=== PATIENT | male | born 1965 | race Caucasian/White ===

== ENCOUNTER 2018-06-19 18:49 | Emergency (ER) | payer OTHER ==
[2018-06-19 19:00] VITALS: TEMP 98.4; BMI 21.9
[2018-06-19] MEDS ORDERED: FOLIC ACID INJECTION - 1 MG, THIAMINE HCL 100 MG, MULTIVIT INJECTION ADULT 10 ML in SOD... IVPB ONE (21:13)
[2018-06-19] MEDS ORDERED: chlordiazePOXIDE HCL 25 MG CAPSULE PO ONE (21:13)
[2018-06-19] MEDS ORDERED: LORazepam 2 MG/ML SDV VIAL ONE (21:26)
[2018-06-19] MEDS ORDERED: chlordiazePOXIDE 5 MG CAPSULE ONE (21:26)
[2018-06-19 21:29] LABS: BASO % 0.8 % (0-2.0); EOS % 3.6 % (0-4.5); HEMATOCRIT 43.9 % (35.4-49); HEMOGLOBIN 15.3 GM/dL (11.7-16.9); LYMPH % 47.4 % (8-40); MCH 32.6 pg (25.7-33.7); MCHC 34.9 g/dl (32.0-35.9); MEAN CELL VOLUME 93.3 fl (80-96); MEAN PLT VOLUME 7.1 fl (7.5-11.1); MONO % 7.2 % (3.8-10.2); PLATELET COUNT 215 K/MM3 (134-434); RBC 4.71 M/mm3 (4.00-5.60); WHITE BLOOD COUNT 6.8 K/mm3 (4.0-10.0)
--- NOTE | 2018-06-19 21:31 | PDOC ---
History of Present Illness - General Chief Complaint: Alcohol intoxication Stated Complaint: ALCOHOL INTOXICATION Time Seen by Provider: 06/19/18 20:31 History Source: Patient Exam Limitations: No Limitations - History of Present Illness Initial Comments: 06/19/18 21:26 HISTORY OF PRESENT ILLNESS: This 52-year-old male past medical history is polysubstance abuse (1 pint of alcohol daily as well as Klonopin which he purchases on the street) who presents emergency department for evaluation of alcohol intoxication. Patient presented to to [facility] for detox but was told his blood alcohol level was too high at that time. Patient reports his last alcohol intake was approximately 4 hours ago. Patient reports he hasn't had any Klonopin in the past 7-10 days. Patient complains of feeling "shaky." He denies any nausea, vomiting, tactile hallucinations, visual disturbances or pain. No recent travel or sick contacts. PAST MEDICAL HISTORY: see HPI SURGICAL HISTORY: Denies ALLERGIES: No known drug allergies REVIEW OF SYSTEMS General/Constitutional: Denies fever or chills. Denies weakness, weight change. HEENT: Denies change in vision. Denies ear pain or discharge. Denies sore throat. Cardiovascular: Denies chest pain or shortness of breath. Respiratory: Denies cough, wheezing, or hemoptysis. Gastrointestinal: Denies nausea, vomiting, diarrhea or constipation. Denies rectal bleeding. Genitourinary: Denies dysuria, frequency, or change in urination. Musculoskeletal: Denies joint or muscle swelling or pain. Denies neck or back pain. Skin and breasts: Denies rash or easy bruising. Neurologic: Denies headache, vertigo, loss of consciousness, or loss of sensation. Endorses tremors. Psychiatric: Denies depression or anxiety. Endocrine: Denies increased thirst. Denies abnormal weight change. Hematologic/Lymphatic: Denies anemia, easy bleeding, or history of blood clots. Allergic/Immunologic: Denies hives or skin allergy. Denies latex allergy. PHYSICAL EXAM General Appearance: Well-appearing, appropriately dressed. No apparent distress , no intoxication. HEENT: EOMI, PERRLA, normal ENT inspection, normal voice, TMs normal, pharynx normal. No conjunctival pallor. No photophobia, scleral icterus. Neck: Supple. Trachea midline. No tenderness, rigidity, carotid bruit, stridor , lymphadenopathy, or thyromegaly. Respiratory/Chest: Lungs CTAB. No shortness of breath, chest tenderness, respiratory distress, accessory muscle use. No crackles, rales, rhonchi, stridor , wheezing, dullness Cardiovascular: RRR. S1, S2. No JVD, murmur, bradycardia, tachycardia. Vascular Pulses: Dorsalis-Pedis (R): 2+, Dorsalis-Pedis (L): 2+ Gastrointestinal/Abdominal: Normal bowel sounds. Abdomen soft, non-distended. No tenderness or rebound tenderness. No organomegaly, pulsatile mass, guarding, hernia, hepatomegaly, splenomegaly. Lymphatic: No adenopathy, tenderness. Musculoskeletal/Extremities: Normal inspection. FROM of all extremities, normal capillary refill. Pelvis Stable. No CVA tenderness. No tenderness to extremities, pedal edema, swelling, erythema or deformity. Integumentary: Appropriate color, dry, warm. No cyanosis, erythema, jaundice or rash Neurologic: quality control analyst II-XII intact. Fully oriented, alert. Appropriate mood/affect. Motor strength 5/5. No appreciable EOM palsy, facial droop or sensory deficit. Tongue fasciculations present. Tremors present bilateral hands with elbows flexed. CIWA-Ar- 7 Past History - Past Medical History Allergies/Adverse Reactions: Allergies Allergy/AdvReac Type Severity Reaction Status Date / Time No Known Allergies Allergy Verified 06/19/18 16:46 Home Medications: Ambulatory Orders Bupropion HCl [Wellbutrin Xl -] 150 mg PO DAILY #30 tab.sr.24h 04/13/15 Gabapentin [Neurontin -] 100 mg PO Q8H 06/19/18 Lurasidone HCl [Latuda -] 20 mg PO DAILY 06/19/18 Trazodone HCl 150 mg PO HS 06/19/18 Anemia: No Asthma: No Cancer: No Cardiac Disorders: No CVA: No COPD: No CHF: No Dementia: No Diabetes: No GI Disorders: No Disorders: No HTN: No Hypercholesterolemia: No Kidney Stones: No Liver Disease: No Seizures: Yes Thyroid Disease: No Other medical history: alcohol abuse - Surgical History Abdominal Surgery: No Appendectomy: No Cardiac Surgery: No Cholecystectomy: No Lung Surgery: No Neurologic Surgery: No Orthopedic Surgery: No - Reproductive History Testicular Surgery: No - Immunization History Immunization Up to Date: No - Suicide/Smoking/Psychosocial Hx Smoking History: Current every day smoker Have you smoked in the past 12 months: No Number of Cigarettes Smoked Daily: 10 Cigars Per Day: 10 Information on smoking cessation initiated: No 'Breaking Loose' booklet given: 04/12/15 Hx Alcohol Use: Yes Drug/Substance Use Hx: No Substance Use Type: Alcohol, Cocaine, Heroin, Marijuana, Tranquilizers Hx Substance Use Treatment: Yes *Physical Exam - Vital Signs Last Vital Signs Temp Pulse Resp BP Pulse Ox 98.4 F 94 H 16 135/87 98 06/19/18 18:58 06/19/18 18:58 06/19/18 18:58 06/19/18 18:58 06/19/18 18:58 Moderate Sedation - Procedure Monitoring Vital Signs: Procedure Monitoring Vital Signs Temperature 98.4 F 06/19/18 18:58 Pulse Rate 94 H 06/19/18 18:58 Respiratory Rate 16 06/19/18 18:58 Blood Pressure 135/87 06/19/18 18:58 O2 Sat by Pulse Oximetry (%) 98 06/19/18 18:58 ED Treatment Course - LABORATORY CBC & Chemistry Diagram: 06/19/18 21:20 06/19/18 21:20 Medical Decision Making - Medical Decision Making 06/19/18 21:30 A/P: 52-year-old male here for evaluation of alcohol withdrawal CIWA-Ar score- 7 No fasciculations present Tremors present with arms flexed Laboratory testing Banana bag Ativan 2 mg IV now Librium 50 mg orally now Reassess 06/20/18 06:27 Patient is ambulatory with steady gait and able to make needs known. I will discharge the patient with recommendation to go to detox. *DC/Admit/Observation/Transfer Diagnosis at time of Disposition: Alcohol dependence with uncomplicated withdrawal - Discharge Dispostion Disposition: HOME Condition at time of disposition: Stable Decision to Admit order: No - Referrals - Patient Instructions Printed Discharge Instructions: DI for Alcohol Abuse Additional Instructions: Avoid alcohol. Drink plenty of fluids. Eat a well-balanced diet. It is recommended you go to to [facility] for detox for continued evaluation. Return to emergency department for any concerns. - Post Discharge Activity
[2018-06-19 22:04] LABS: ALBUMIN 3.9 g/dl (3.4-5.0); ALK PHOS 107 U/L (45-117); ANION GAP 10 MMOL/L (8-16); BILIRUBIN,TOTAL 0.4 mg/dL (0.2-1); BLOOD UREA NITROGEN 7 mg/dL (7-18); CALCIUM 8.4 mg/dL (8.5-10.1); CHLORIDE 103 mmol/L (98-107); CO2 27 mmol/L (21-32); CREATININE 0.9 mg/dL (0.55-1.3); GLUCOSE,RANDOM 87 mg/dL (74-106); POTASSIUM 4.6 mmol/L (3.5-5.1); SGOT/AST 40 U/L (15-37); SGPT/ALT 23 U/L (13-61); SODIUM 140 mmol/L (136-145)
[2018-06-20] MEDS ORDERED: LORazepam 2 MG/ML SDV VIAL ONE (01:54)
[2018-06-20] MEDS ORDERED: chlordiazePOXIDE HCL 25 MG CAPSULE PO ONE (05:07)
[2018-06-20] MEDS ORDERED: chlordiazePOXIDE HCL 25 MG CAPSULE ONE (05:18)
[2018-06-20 06:46] VITALS: BP 132/78; PULSE 86
== END 2018-06-20 07:20 | disposition home or self-care (01) ==
LOC: JER 18:49
PROC: 3E033GC Introduction of Other Therapeutic Substance into Peripheral Vein, Percutaneous Approach (ICD-10-PCS; principal; 2018-06-19)
PROC: 3E033NZ Introduction of Analgesics, Hypnotics, Sedatives into Peripheral Vein, Percutaneous Approach (ICD-10-PCS; 2018-06-19)
DX: F10.239 Alcohol dependence with withdrawal, unspecified (principal); F17.210 Nicotine dependence, cigarettes, uncomplicated
CPT/HCPCS: 36415; 80053; 80307; 85025; 99282-25; J7030

== ENCOUNTER 2018-06-20 08:26 | Inpatient (IN) | payer OTHER ==
[2018-06-20 08:41] VITALS: BMI 21.9
--- NOTE | 2018-06-20 09:54 | HP ---
"CIWA Score Nausea/Vomitin-Mild Nausea/No Vomiting Muscle Tremors: 7-Severe,w/o Arm Extended Anxiety: 6 Agitation: 0-Normal Activity Paroxysmal Sweats: No Perspiration Orientation: 0-Oriented Tacttile Disturbances: 0-None Auditory Disturbances: 0-None Visual Disturbances: 0-None Headache: 0-None Present CIWA-Ar Total Score: 14 - Admission Criteria OASAS Guidelines: Admission for Medically Managed Detox: Requires at least one of the followin. CIWA greater than 12 2. Seizures within the past 24 hours 3. Delirium tremens within the past 24 hours 4. Hallucinations within the past 24 hours 5. Acute intervention needed for co occurring medical disorder 6. Acute intervention needed for co occurring psychiatric disorder 7. Severe withdrawal that cannot be handled at a lower level of care (continued vomiting, continued diarrhea, abnormal vital signs) requiring intravenous medication and/or fluids 8. Patient presents the following: CIWA greater than 12, Seizures, delirium tremens or hallucinations in the past 12 hours Admission Criteria Met: Admission criteria met Admission ROS [facility] Allergies/Adverse Reactions: Allergies Allergy/AdvReac Type Severity Reaction Status Date / Time No Known Allergies Allergy Verified 06/20/18 10:11 History of Present Illness: patient here requesting detox from etoh use , reports 1 pint and 7-8 beers/day x 4-5 weeks , prior sobriety x 2 years w/ AA , prior 1/5 /day x 30 years , first age of use [age] , heavily since college , prior detox x 8-9 , rehab 2- 3 . + w/d seizure in the past . benzo : clonazepam illicit use 5 pills 9 days ago , since 5-6 years ago , used to have rx March 2018 heroin : 6 weeks ago , via inhalation , reports intermittent use x 4 years tobacco : 1/2 ppd . This report was requested by: Bernadette Charles | Reference #: [id number] Others' Prescriptions Patient Name: Navdeep Cooper Date: 1965 Address: [address] [place] [address] Sex: Male Rx Written Rx Dispensed Drug Quantity Days Supply Prescriber Name 03/24/2018 03/24/2018 clonazepam 1 mg tablet 90 30 Char Murdock MD 02/12/2018 02/12/2018 clonazepam 1 mg tablet 60 30 Char Murdock MD 02/10/2018 02/10/2018 zolpidem tartrate 10 mg tablet 30 30 Char Murdock MD 07/17/2017 07/20/2017 clonazepam 1 mg tablet 60 30 Mary Joy Patient Name: Navdeep Cooper Date: 1965 Address: [address] [place] [address] Sex: Male Rx Written Rx Dispensed Drug Quantity Days Supply Prescriber Name 02/21/2018 02/21/2018 tramadol hcl 50 mg tablet 30 7 Colette Chin MD Patient Name: Navdeep Cooper Date: 1965 Address: [address] [place] [address] Sex: Male Rx Written Rx Dispensed Drug Quantity Days Supply Prescriber Name 04/29/2017 08/10/2017 zolpidem tartrate 10 mg tablet 30 30 Char Murdock MD PMHX/PSHX : denies PSych :depression , denies SI/ HI SHX : lives alone , on SSI , no children , unemployed - Ebola screening Have you traveled outside of the country in the last 21 days: No Have you had contact with anyone from an Ebola affected area: No Have you been sick,other than usual withdrawal symptoms: No Do you have a fever: No - Review of Systems Constitutional: See HPI EENT: reports: Other (lost glasses , hypermetropia , denies dysphagia) Respiratory: reports: No Symptoms reported Cardiac: reports: No Symptoms Reported GI: reports: Nausea : reports: No Symptoms Reported Musculoskeletal: reports: Muscle Weakness Integumentary: reports: No Symptoms Reported Neuro: reports: See HPI, Seizure Endocrine: reports: No Symptoms Reported Psychiatric: reports: Orientated x3, Anxious Patient History - Patient Medical History Hx Anemia: No Hx Asthma: No Hx Chronic Obstructive Pulmonary Disease (COPD): No Hx Cancer: No Hx Cardiac Disorders: No Hx Congestive Heart Failure: No Hx Hypertension: No Hx Hypercholesterolemia: No Hx Pacemaker: No HX Cerebrovascular Accident: No Hx Seizures: Yes Hx Dementia: No Hx Diabetes: No Hx Gastrointestinal Disorders: No Hx Liver Disease: No Hx Genitourinary Disorders: No Hx Sexually Transmitted Disorders: No Hx Renal Disease (ESRD): No Hx Thyroid Disease: No Hx Human Immunodeficiency Virus (HIV): No Hx Hepatitis C: No Hx Depression: Yes Hx Suicide Attempt: No Hx Schizophrenia: No - Patient Surgical History Past Surgical History: No Hx Neurologic Surgery: No Hx Cataract Extraction: No Hx Cardiac Surgery: No Hx Lung Surgery: No Hx Breast Surgery: No Hx Breast Biopsy: No Hx Abdominal Surgery: No Hx Appendectomy: No Hx Cholecystectomy: No Hx Genitourinary Surgery: No Hx Section: No Hx Orthopedic Surgery: No Anesthesia Reaction: No - PPD History Date: 04/14/15 Results: 0 mm - Smoking Cessation Smoking history: Current every day smoker Have you smoked in the past 12 months: No Aproximately how many cigarettes per day: 10 Cigars Per Day: 10 Hx Chewing Tobacco Use: No Initiated information on smoking cessation: No - Substances Abused Heroin Route: Inhalation Frequency: 1-3 times last 30 days Amount used: 2 bags Age of first use: 48 Date of Last Use: 06/12/18 Alcohol-beer/vodka Route: Oral Frequency: Daily Amount used: 1-6 pk./1 pt. Age of first use: 14 Date of Last Use: 06/19/18 Klonopin Route: Oral Frequency: 1-3 times last 30 days Amount used: 2-3 mg., Age of first use: 46 Date of Last Use: 06/17/18 Family Disease History - Family Disease History Family Disease History: Other: Father (d.54 lung CA , etoh abuse), Mother ( DEPRESSION , d. 67 lupus ), Brother (2 , A & W ) Admission Physical Exam S - Vital Signs Vital Signs: Vital Signs - 24 hr 06/20/18 08:39 Temperature 98.6 F Pulse Rate 88 Respiratory 18 Rate Blood Pressure 140/80 - Physical General Appearance: Yes: Moderate Distress, Thin, Tremorous, Anxious HEENTM: Yes: EOMI, Hearing grossly Normal, Normocephalic, Normal Voice Respiratory: Yes: Chest Non-Tender, Lungs Clear, Normal Breath Sounds Breast: Yes: Breast Exam Deferred Cardiology: Yes: Regular Rhythm, Regular Rate, S1, S2, Tachycardia Abdominal: Yes: Non Tender, Soft Genitourinary: Yes: Within Normal Limits Musculoskeletal: Yes: Other (slight staggering) Extremities: Yes: Normal Capillary Refill, Normal Range of Motion, Tremors Neurological: Yes: Fully Oriented, Alert, Motor Strength 5/5 Integumentary: Yes: Normal Color, Dry, Warm - Diagnostic (1) Alcohol dependence with uncomplicated withdrawal Current Visit: No Status: Acute (2) Benzodiazepine dependence Current Visit: No Status: Acute (3) Nicotine dependence Current Visit: No Status: Chronic Qualifiers: Nicotine product type: cigarettes Substance use status: uncomplicated Qualified Code(s): F17.210 - Nicotine dependence, cigarettes, uncomplicated BHS Breath Alcohol Content Breath Alcohol Content: 0 Urine Drug Screen - Results Drug Screen Negative: No Urine Drug Screen Results: BZO-Benzodiazepines"
[2018-06-20] MEDS ORDERED: P-EPHED 60MG/TRIPROLIDI 2.5MG TABLET PO PRN (10:01)
[2018-06-20] MEDS ORDERED: guaiFENesin/D-METHORPHAN HB 10 ML UNIT-DOSE CUPS PO PRN (10:01)
[2018-06-20] MEDS ORDERED: ACETAMINOPHEN 325 MG TABLET (FP) PO PRN (10:01)
[2018-06-20] MEDS ORDERED: MENTHOL/PHENOL 1 EACH UD MM PRN (10:01)
[2018-06-20] MEDS ORDERED: NICOTINE POLACRILEX 2 MG GUM BUC PRN (10:01)
[2018-06-20] MEDS ORDERED: MAG HYDROX/AL HYDROX/SIMETH 30 ML UNIT-DOSE CUP PO PRN (10:01)
[2018-06-20] MEDS ORDERED: IBUPROFEN 400 MG TABLET (FP) PO PRN (10:01)
--- NOTE | 2018-06-20 11:58 | CONSULT ---
[facility] Psychiatric Consult - Data Date of interview: 06/20/18 Admission source: [facility] Identifying data: patient here requesting detox from etoh use , reports 1 pint and 7-8 beers/day x 4-5 weeks , prior sobriety x 2 years w/ AA , prior 1/5 /day x 30 years , first age of use [age] , heavily since college , prior detox x 8-9 , rehab 2-3 . + w/d seizure in the past . benzo : clonazepam illicit use 5 pills 9 days ago , since 5-6 years ago , used to have rx March 2018. heroin : 6 weeks ago , via inhalation , reports intermittent use x 4 years. tobacco : 1/2 ppd . Substance Abuse History: Patient reports long history of Alcohol, Benzodiazepins and Nicotine abuse,dependence. Patient reports multiple history of detoxes and rehabs, reports the most provocative drug is Alcohol, reports w/ d seizures history once happened due to Alcohol withdrawal in the past. Medical History: Seizure history Psychiatric History: Patient reports history of anxiety amd depression, reports his anxiety and depression is drugs related, denies suicidal, homicidal history , reports psychiatric hospitalization on 2015 at [facility]. Patient states taking prior to madmission: Wellbutrin X150MG P[OQD. Gabapentin 300MG PO TID. Latuda 20mg poqd. Trazodone 150mg po qhs Physical/Sexual Abuse/Trauma History: Denies Additional Comment: Wellbutrin X150MG P[OQD. Gabapentin 300MG PO TID. Latuda 20mg poqd. Trazodone 150mg po qhs Mental Status Exam - Mental Status Exam Alert and Oriented to: Person Cognitive Function: Fair Patient Appearance: Unkempt Mood: Apprehensive Affect: Mood Congruent Patient Behavior: Cooperative Voice Loudness: Normal Thought Process: Goal Oriented Thought Disorder: Being Controlled Hallucinations: Denies Suicidal Ideation: Denies Homicidal Ideation: Denies Insight/Judgement: Fair Sleep: Difficulty falling asleep Appetite: Weight loss Additional Comments: Wellbutrin X150MG P[OQD. Gabapentin 300MG PO TID. Latuda 20mg poqd. Trazodone 150mg po qhs Psychiatric Findings - Problem List (Carmine 1, 2,3) (1) Major Depressive Disorder,Recurrent,Severe w/ P.F Current Visit: No Status: Active (2) Posttraumatic stress disorder Current Visit: No Status: Active (3) Alcohol dependence Current Visit: No Status: Acute (4) Alcohol dependence with uncomplicated withdrawal Current Visit: No Status: Acute (5) Benzodiazepine dependence Current Visit: No Status: Acute (6) Heroin dependence Current Visit: No Status: Acute (7) Opioid dependence with withdrawal Current Visit: No Status: Acute (8) Cannabis dependence Current Visit: No Status: Chronic (9) Cocaine dependence Current Visit: No Status: Chronic Qualifiers: Substance use status: uncomplicated Qualified Code(s): F14.20 - Cocaine dependence, uncomplicated (10) Nicotine dependence Current Visit: No Status: Chronic Qualifiers: Nicotine product type: cigarettes Substance use status: uncomplicated Qualified Code(s): F17.210 - Nicotine dependence, cigarettes, uncomplicated (11) Substance induced mood disorder Current Visit: No Status: Chronic - Initial Treatment Plan Initial Treatment Plan: Wellbutrin X150MG P[OQD. Gabapentin 300MG PO TID. Latuda 20mg poqd. Trazodone 150mg po qhs
[2018-06-20] MEDS: chlordiazePOXIDE HCL 25 MG CAPSULE PO PRN (12:19)
--- NOTE | 2018-06-20 12:25 | HP ---
[facility] Rehab Assess/Revision - Vital signs Vital Signs: Vital Signs Period Temp Pulse Resp BP Sys/Mariscal Pulse Ox Last 24 Hr 98.6 F 88 18 140/80
[2018-06-20] MEDS: GABAPENTIN 100 MG CAPSULE (FP) PO SCH ×2 (14:17→22:21)
[2018-06-20] MEDS: LURASIDONE HCL 20 MG TABLET PO SCH (14:17)
[2018-06-20] MEDS: chlordiazePOXIDE HCL 25 MG CAPSULE PO SCH ×2 (17:25→22:21)
[2018-06-20] MEDS ORDERED: MELATONIN 5 MG TABLETS PO PRN (22:00)
[2018-06-20] MEDS: traZODone HCL 50 MG TABLET (FP) PO SCH (22:21)
[2018-06-20] MEDS: THIAMINE HCL 100 MG TABLET (FP) PO SCH (22:21)
[2018-06-21] MEDS: GABAPENTIN 100 MG CAPSULE (FP) PO SCH ×3 (06:05→22:06)
[2018-06-21] MEDS: chlordiazePOXIDE HCL 25 MG CAPSULE PO SCH ×2 (06:05→10:28)
[2018-06-21] MEDS: hydrOXYzine PAMOATE 50 MG CAPSULE (FP) PO PRN ×2 (10:28→22:06)
[2018-06-21] MEDS: PRENATAL VITAMINS W/ FOLIC ACID TABLET (FP) PO SCH (10:28)
[2018-06-21] MEDS: LURASIDONE HCL 20 MG TABLET PO SCH (10:28)
--- NOTE | 2018-06-21 10:51 | PN ---
S CIWA - CIWA Score Nausea/Vomitin-No Nausea/No Vomiting Muscle Tremors: 3 Anxiety: 3 Agitation: 3 Paroxysmal Sweats: 3 Orientation: 0-Oriented Tacttile Disturbances: 0-None Auditory Disturbances: 0-None Visual Disturbances: 0-None Headache: 0-None Present CIWA-Ar Total Score: 12 BHS Progress Note (SOAP) Subjective: sweats shakes interrupted sleep body aches Objective: 06/21/18 10:50 Vital Signs Temperature 98.1 F 06/21/18 09:50 Pulse Rate 91 H 06/21/18 09:50 Respiratory Rate 18 06/21/18 09:50 Blood Pressure 101/55 L 06/21/18 09:50 O2 Sat by Pulse Oximetry (%) labs were drawn at [facility] 06/19/17...labs WNL. Assessment: 06/21/18 10:52 withdrawal sx Plan: continue detox increase fluids
[2018-06-21] MEDS ORDERED: FLU VACCINE QUAD 60 MCG/0.5 ML (MDV 18-19) IM ONE (12:00)
[2018-06-21] MEDS: chlordiazePOXIDE HCL 25 MG CAPSULE PO PRN (14:11)
[2018-06-21] MEDS: chlordiazePOXIDE HCL 10 MG CAPSULE PO SCH ×2 (17:51→22:07)
[2018-06-21] MEDS: THIAMINE HCL 100 MG TABLET (FP) PO SCH (22:05)
[2018-06-21] MEDS: traZODone HCL 50 MG TABLET (FP) PO SCH (22:06)
[2018-06-22] MEDS: chlordiazePOXIDE HCL 10 MG CAPSULE PO SCH ×2 (05:28→10:12)
[2018-06-22] MEDS: GABAPENTIN 100 MG CAPSULE (FP) PO SCH ×3 (05:28→22:19)
[2018-06-22] MEDS: PRENATAL VITAMINS W/ FOLIC ACID TABLET (FP) PO SCH (10:12)
[2018-06-22] MEDS: LURASIDONE HCL 20 MG TABLET PO SCH (10:13)
--- NOTE | 2018-06-22 10:14 | PN ---
BHS CIWA - CIWA Score Nausea/Vomitin Muscle Tremors: 2 Anxiety: 2 Agitation: 2 Paroxysmal Sweats: 2 Orientation: 0-Oriented Tacttile Disturbances: 2-Mild Itch/Numbness/Burn Auditory Disturbances: 0-None Visual Disturbances: 0-None Headache: 1-Very Mild CIWA-Ar Total Score: 14 BHS Progress Note (SOAP) Subjective: Interrupted sleep, shakes, sweats and nausea Objective: 06/22/18 10:13 Vital Signs 06/22/18 06/22/18 06/22/18 03:30 08:13 09:39 Temperature 97.7 F 97.9 F Pulse Rate 71 85 Respiratory 18 18 18 Rate Blood Pressure 114/67 119/96 Laboratory Last Values POC Glucometer 114 UNITS (80-120) 06/21/18 12:01 RPR Titer Nonreactive (NONREACTIVE) 06/21/18 06:00 Assessment: 06/22/18 10:13 Withdrawal sx Plan: Continue detox
[2018-06-22] MEDS: chlordiazePOXIDE HCL 25 MG CAPSULE PO PRN (14:27)
[2018-06-22] MEDS: MAGNESIUM HYDROX 2400MG/30ML ORAL SUSPENSION 30 ML CUP PO PRN (16:39)
[2018-06-22] MEDS: chlordiazePOXIDE HCL 25 MG CAPSULE PO SCH ×2 (16:39→22:18)
[2018-06-22] MEDS: traZODone HCL 50 MG TABLET (FP) PO SCH (22:18)
[2018-06-22] MEDS: THIAMINE HCL 100 MG TABLET (FP) PO SCH (22:18)
[2018-06-23] MEDS: chlordiazePOXIDE HCL 25 MG CAPSULE PO SCH ×2 (06:13→10:21)
[2018-06-23] MEDS: GABAPENTIN 100 MG CAPSULE (FP) PO SCH ×3 (06:13→22:14)
[2018-06-23] MEDS: MAGNESIUM CITRATE 300 ML BOTTLE PO PRN (08:41)
--- NOTE | 2018-06-23 09:48 | PN ---
BHS Progress Note (SOAP) Subjective: feeling better constipated x 3 days regular BM as daily no vomiting denies nausea denies abdominal pain Objective: 06/23/18 15:40 Vital Signs Temperature 97.7 F 06/23/18 14:13 Pulse Rate 79 06/23/18 14:13 Respiratory Rate 18 06/23/18 14:13 Blood Pressure 108/64 06/23/18 14:13 O2 Sat by Pulse Oximetry (%) Laboratory Last Values POC Glucometer 114 UNITS (80-120) 06/21/18 12:01 RPR Titer Nonreactive (NONREACTIVE) 06/21/18 06:00 06/23/18 15:41 see ER lab result Assessment: 06/23/18 15:39 withdrawal sx constipation Plan: continue detox fleet enema
[2018-06-23] MEDS: LURASIDONE HCL 20 MG TABLET PO SCH (10:21)
[2018-06-23] MEDS: PRENATAL VITAMINS W/ FOLIC ACID TABLET (FP) PO SCH (10:21)
[2018-06-23] MEDS ORDERED: SODIUM PHOSPHATE/NA BIPHOS 133 ML ENEMA PR ONE ×2 (13:59→18:45)
[2018-06-23] MEDS: MAGNESIUM HYDROX 2400MG/30ML ORAL SUSPENSION 30 ML CUP PO PRN (15:17)
[2018-06-23] MEDS: chlordiazePOXIDE 5 MG CAPSULE PO SCH ×2 (17:29→22:14)
[2018-06-23] MEDS: traZODone HCL 50 MG TABLET (FP) PO SCH (22:13)
[2018-06-23] MEDS: THIAMINE HCL 100 MG TABLET (FP) PO SCH (22:13)
[2018-06-24] MEDS: chlordiazePOXIDE 5 MG CAPSULE PO SCH ×2 (06:02→10:31)
[2018-06-24] MEDS: GABAPENTIN 100 MG CAPSULE (FP) PO SCH ×3 (06:02→22:09)
[2018-06-24] MEDS: LURASIDONE HCL 20 MG TABLET PO SCH (10:30)
[2018-06-24] MEDS: PRENATAL VITAMINS W/ FOLIC ACID TABLET (FP) PO SCH (10:31)
[2018-06-24] MEDS: MAGNESIUM HYDROX 2400MG/30ML ORAL SUSPENSION 30 ML CUP PO PRN (10:32)
--- NOTE | 2018-06-24 14:35 | PN ---
BHS Progress Note (SOAP) Subjective: Tremors, Nausea, Constipation. Objective: PATIENT A & O X 3, OBSERVED AMBULATING ON UNIT. IN NO ACUTE DISTRESS. 06/24/18 14:33 Vital Signs Temperature 98.4 F 06/24/18 13:22 Pulse Rate 85 06/24/18 13:22 Respiratory Rate 18 06/24/18 13:22 Blood Pressure 121/70 06/24/18 13:22 O2 Sat by Pulse Oximetry (%) Laboratory Tests 06/21/18 06/21/18 06:00 12:01 POC Glucometer 114 RPR Titer Nonreactive LABS NOTED. Assessment: 06/24/18 14:34 WITHDRAWAL SYMPTOMS. Plan: CONTINUE DETOX. INCREASE DAILY PO FLUID INTAKE. PATIENT SCHEDULED FOR D/C TOMORROW.
[2018-06-24] MEDS: MAGNESIUM CITRATE 300 ML BOTTLE PO PRN (15:14)
[2018-06-24] MEDS: chlordiazePOXIDE HCL 10 MG CAPSULE PO SCH ×2 (17:08→22:09)
[2018-06-24] MEDS: hydrOXYzine PAMOATE 50 MG CAPSULE (FP) PO PRN (22:09)
[2018-06-24] MEDS: THIAMINE HCL 100 MG TABLET (FP) PO SCH (22:09)
[2018-06-24] MEDS: traZODone HCL 50 MG TABLET (FP) PO SCH (22:09)
[2018-06-25] MEDS: GABAPENTIN 100 MG CAPSULE (FP) PO SCH (05:11)
[2018-06-25] MEDS: chlordiazePOXIDE HCL 10 MG CAPSULE PO SCH (05:11)
[2018-06-25] MEDS: MAGNESIUM HYDROX 2400MG/30ML ORAL SUSPENSION 30 ML CUP PO PRN (05:13)
[2018-06-25 09:42] VITALS: BP 114/73; PULSE 83; TEMP 98.1
--- NOTE | 2018-06-25 16:41 | DS ---
[facility] Detox Discharge Summary Admission Date: 06/20/18 Discharge Date: 06/25/18 - History Present History: Alcohol Dependence, Cannabis Dependence, Cocaine Dependence, Opioid Dependence, Sedative Dependence Additional Comments: PATIENT RETURNING TO PREVIOUS OUTPATIENT PROGRAM ([facility], [place], [place] ) FOR AFTERCARE. PATIENT NOTES THAT HE WILL CONSIDER REHAB ADMISSION FOR FUTURE. TRANSPORTATION ARRANGED FOR PATIENT TO GET HOME. PATIENT WAS DISCHARGED FROM DETOX UNIT IN STABLE MEDICAL CONDITION. Pertinent Past History: Nicotine Dependence, History of P.T.S.D., Major Depressive Disorder, History of Seizures. - Physical Exam Results Vital Signs: Vital Signs Temperature 98.1 F 06/25/18 09:41 Pulse Rate 83 06/25/18 09:41 Respiratory Rate 18 06/25/18 09:41 Blood Pressure 114/73 06/25/18 09:41 O2 Sat by Pulse Oximetry (%) Pertinent Admission Physical Exam Findings: WITHDRAWAL SYMPTOMS. Laboratory Tests 06/21/18 06/21/18 06:00 12:01 POC Glucometer 114 RPR Titer Nonreactive ADMISSION LABS NOTED. - Treatment Hospital Course: Detox Protocol Followed, Detoxed Safely, Responded well, Discharged Condition Good Patient has Accepted a Rehab Referral to: PATIENT WILL CONSIDER REHAB ADMISSION FOR FUTURE REFERENCE. - Medication Discharge Medications: Ambulatory Orders Bupropion HCl [Wellbutrin Xl -] 150 mg PO DAILY #30 tab.sr.24h 06/20/18 Gabapentin [Neurontin -] 100 mg PO Q8H #90 capsule 06/20/18 Lurasidone HCl [Latuda -] 20 mg PO DAILY #30 tablet 06/20/18 Trazodone HCl 150 mg PO HS #30 tablet 06/20/18 - Diagnosis (1) Major Depressive Disorder,Recurrent,Severe w/ P.F Status: Active (2) Posttraumatic stress disorder Status: Active (3) Alcohol dependence with uncomplicated withdrawal Status: Acute (4) Benzodiazepine dependence Status: Acute (5) Depressive disorder Status: Acute (6) Heroin dependence Status: Acute (7) Opioid dependence with withdrawal Status: Acute (8) Cannabis dependence Status: Chronic (9) Cocaine dependence Status: Chronic Qualifiers: Substance use status: uncomplicated Qualified Code(s): F14.20 - Cocaine dependence, uncomplicated (10) Nicotine dependence Status: Chronic Qualifiers: Nicotine product type: cigarettes Substance use status: uncomplicated Qualified Code(s): F17.210 - Nicotine dependence, cigarettes, uncomplicated (11) Substance induced mood disorder Status: Chronic - AMA Did Patient Leave Against Medical Advice: No
== END 2018-06-25 09:30 | disposition home or self-care (01) | DRG 897 ==
LOC: YASAS 08:26 → Y6N 11:09
PROVIDERS: ADMIT Neuromusculoskeletal Medicine & OMM; ATTEND Neuromusculoskeletal Medicine & OMM
PROC: HZ2ZZZZ Detoxification Services for Substance Abuse Treatment (ICD-10-PCS; principal; 2018-06-20)
DX: F10.230 Alcohol dependence with withdrawal, uncomplicated (principal); F14.20 Cocaine dependence, uncomplicated; F33.3 Major depressive disorder, recurrent, severe with psychotic symptoms; F13.230 Sedative, hypnotic or anxiolytic dependence with withdrawal, uncomplicated; F12.20 Cannabis dependence, uncomplicated; F17.210 Nicotine dependence, cigarettes, uncomplicated; F43.10 Post-traumatic stress disorder, unspecified; F19.24 Other psychoactive substance dependence with psychoactive substance-induced mood disorder; K59.00 Constipation, unspecified; R00.0 Tachycardia, unspecified; Z86.69 Personal history of other diseases of the nervous system and sense organs
CPT/HCPCS: 36415; 80053; 80307; 82962; 85025; 86593; 90688; 99282-25; G0008; J7030

== ENCOUNTER 2018-07-30 14:20 | Inpatient (IN) | payer OTHER ==
[2018-07-30 17:18] VITALS: BMI 21.4
--- NOTE | 2018-07-30 17:23 | HP ---
CIWA Score - Admission Criteria [facility] Guidelines: Admission for Medically Managed Detox: Requires at least one of the followin. CIWA greater than 12 2. Seizures within the past 24 hours 3. Delirium tremens within the past 24 hours 4. Hallucinations within the past 24 hours 5. Acute intervention needed for co occurring medical disorder 6. Acute intervention needed for co occurring psychiatric disorder 7. Severe withdrawal that cannot be handled at a lower level of care (continued vomiting, continued diarrhea, abnormal vital signs) requiring intravenous medication and/or fluids 8. Admission ROS [facility] Allergies/Adverse Reactions: Allergies Allergy/AdvReac Type Severity Reaction Status Date / Time No Known Allergies Allergy Verified 06/20/18 10:11 History of Present Illness: i-stop : Reference #: [id number] Others' Prescriptions Patient Name: Navdeep Cooper Date: 1965 Address: [address] [place] [address] Sex: Male Rx Written Rx Dispensed Drug Quantity Days Supply Prescriber Name 03/24/2018 03/24/2018 clonazepam 1 mg tablet 90 30 Char Murdock MD 02/12/2018 02/12/2018 clonazepam 1 mg tablet 60 30 Char Murdock MD 02/10/2018 02/10/2018 zolpidem tartrate 10 mg tablet 30 30 Char Murdock MD Patient Name: Navdeep Cooper Date: 1965 Address: [address] [place] [address] Sex: Male Rx Written Rx Dispensed Drug Quantity Days Supply Prescriber Name 02/21/2018 02/21/2018 tramadol hcl 50 mg tablet 30 7 Colette Chin MD Patient Name: Navdeep Cooper Date: 1965 Address: [address] [place] [address] Sex: Male Rx Written Rx Dispensed Drug Quantity Days Supply Prescriber Name 04/29/2017 08/10/2017 zolpidem tartrate 10 mg tablet 30 30 Char Murdock MD pt here requesting detox from klonopin use , reports 4-5 of 1 mg each illicitly purchased from "a friend " , started using xanax , took 30 x 1 mg each in the last week . Latest use this morning . Had w/d seizure 2 years ago . ETOH - occasional 2-3 beers . Currently reports feeling " shaky " , sweating , anxious , feeling of hopelessness . cannabis - occasional use adderall - occasional use , had rx 3 years ago denies other illicits tobacco - occasional use. PMHX : depression meds : Latuda, Gabapentin, Bupropion Denies current SI / HI . Denies past SI / SA. PSHX : denies Exam Limitations: No Limitations - Ebola screening Have you traveled outside of the country in the last 21 days: No Have you had contact with anyone from an Ebola affected area: No Have you been sick,other than usual withdrawal symptoms: No Do you have a fever: No - Review of Systems Constitutional: See HPI EENT: reports: Other (reading glasses) Respiratory: reports: No Symptoms reported Cardiac: reports: No Symptoms Reported GI: reports: No Symptoms Reported : reports: No Symptoms Reported Musculoskeletal: reports: No Symptoms Reported Integumentary: reports: No Symptoms Reported Neuro: reports: Seizure, Unsteady Gait Endocrine: reports: No Symptoms Reported Psychiatric: reports: Orientated x3, Anxious, Depressed Patient History - Patient Medical History Hx Anemia: No Hx Asthma: No Hx Chronic Obstructive Pulmonary Disease (COPD): No Hx Cancer: No Hx Cardiac Disorders: No Hx Congestive Heart Failure: No Hx Hypertension: No Hx Hypercholesterolemia: No Hx Pacemaker: No HX Cerebrovascular Accident: No Hx Seizures: Yes Hx Dementia: No Hx Diabetes: No Hx Gastrointestinal Disorders: No Hx Liver Disease: No Hx Genitourinary Disorders: No Hx Sexually Transmitted Disorders: No Hx Renal Disease (ESRD): No Hx Thyroid Disease: No Hx Human Immunodeficiency Virus (HIV): No Hx Hepatitis C: No Hx Depression: Yes Hx Suicide Attempt: No Hx Schizophrenia: No - Patient Surgical History Past Surgical History: No Hx Neurologic Surgery: No Hx Cataract Extraction: No Hx Cardiac Surgery: No Hx Lung Surgery: No Hx Breast Surgery: No Hx Breast Biopsy: No Hx Abdominal Surgery: No Hx Appendectomy: No Hx Cholecystectomy: No Hx Genitourinary Surgery: No Hx Section: No Hx Orthopedic Surgery: No Anesthesia Reaction: No - PPD History Date: 06/22/18 Results: 0 mm - Smoking Cessation Smoking history: Current every day smoker Have you smoked in the past 12 months: No Aproximately how many cigarettes per day: 10 Cigars Per Day: 10 Hx Chewing Tobacco Use: No Initiated information on smoking cessation: No Family Disease History - Family Disease History Family Disease History: Other: Father (d.54 lung CA , etoh abuse), Mother ( DEPRESSION , d. 67 lupus ), Brother (2 , A & W ) Admission Physical Exam [facility] - Vital Signs Vital Signs: Vital Signs - 24 hr 07/30/18 17:16 Temperature 96.2 F L Pulse Rate 81 Respiratory 20 Rate Blood Pressure 125/81 - Physical General Appearance: Yes: Mild Distress, Thin, Sweating, Anxious HEENTM: Yes: EOMI, Hearing grossly Normal, Normocephalic, Normal Voice Respiratory: Yes: Chest Non-Tender, Lungs Clear, Normal Breath Sounds Neck: Yes: No masses,lesions,Nodules, Trachea in good position Cardiology: Yes: Regular Rhythm, Regular Rate, S1, S2 Abdominal: Yes: Normal Bowel Sounds, Soft Genitourinary: Yes: Within Normal Limits Back: Yes: Normal Inspection Musculoskeletal: Yes: Other (unsteady , staggering gait) Extremities: Yes: Normal Capillary Refill, Normal Range of Motion, Tremors Neurological: Yes: Motor Strength 5/5, Depressed Affect Integumentary: Yes: Normal Color, Dry, Warm - Diagnostic (1) Sedative hypnotic or anxiolytic dependence Current Visit: Yes Status: Acute [facility] Breath Alcohol Content Breath Alcohol Content: 0 Urine Drug Screen - Results Drug Screen Negative: No Urine Drug Screen Results: BZO-Benzodiazepines Inpatient Rehab Admission - Rehab Decision to Admit Inpatient rehab admission?: No
[2018-07-30] MEDS ORDERED: ACETAMINOPHEN 325 MG TABLET (FP) PO PRN (17:52)
[2018-07-30] MEDS ORDERED: MAG HYDROX/AL HYDROX/SIMETH 30 ML UNIT-DOSE CUP PO PRN (17:52)
[2018-07-30] MEDS ORDERED: MENTHOL/PHENOL 1 EACH UD MM PRN (17:52)
[2018-07-30] MEDS ORDERED: IBUPROFEN 400 MG TABLET (FP) PO PRN (17:52)
[2018-07-30] MEDS: MAGNESIUM HYDROX 2400MG/30ML ORAL SUSPENSION 30 ML CUP PO PRN (22:31)
[2018-07-30] MEDS: chlordiazePOXIDE HCL 25 MG CAPSULE PO SCH (22:31)
[2018-07-30] MEDS: THIAMINE HCL 100 MG TABLET (FP) PO SCH (22:31)
[2018-07-31] MEDS: chlordiazePOXIDE HCL 25 MG CAPSULE PO SCH ×4 (05:31→22:10)
[2018-07-31] MEDS: MAGNESIUM CITRATE 300 ML BOTTLE PO PRN (05:34)
--- NOTE | 2018-07-31 07:47 | CONSULT ---
[facility] Psychiatric Consult - Data Date of interview: 07/31/18 Admission source: [facility] Identifying data: This is a 52 years old male, single, childless, living alone, onSSI support, with psychiatric hospitalization history, history of MDD, PTSD, with a history of: Opioids, Cocaine, Cannabis, Alcohol and Nicotine dependence , is here reporting withdrawal symptoms and seeking for detox. Substance Abuse History: Smoking history: Current every day smoker. Have you smoked in the past 12 months: No. Aproximately how many cigarettes per day: 10. Cigars Per Day: 10. Hx Chewing Tobacco Use: No. Initiated information on smoking cessation: No Medical History: Denies significant medical problems. Psychiatric History: Patient reports history of MDD, PTSD, reports most recent psychiatric hospitalization on 2015 at [facility], denies suicidal, homicidal history, reports taking prior to admission: Trazodone 150mg po qhs. Gabapentin 100mg po tid. Wellbutrin XL 150mg poqd Physical/Sexual Abuse/Trauma History: Denies Additional Comment: Trazodone 150mg po qhs. Gabapentin 100mg po tid. Wellbutrin XL 150mg poqd Mental Status Exam - Mental Status Exam Alert and Oriented to: Person Cognitive Function: Fair Patient Appearance: Unkempt Mood: Sad Affect: Flat Patient Behavior: Cooperative Speech Pattern: Appropriate Voice Loudness: Mildly Soft/Quiet Thought Process: Goal Oriented Thought Disorder: Being Controlled Hallucinations: Denies Suicidal Ideation: Denies Homicidal Ideation: Denies Insight/Judgement: Fair Sleep: Difficulty falling asleep Appetite: Fair Muscle strength/Tone: Mild Hypotonicity Gait/Station: Shuffling Additional Comments: Trazodone 150mg po qhs. Gabapentin 100mg po tid. Wellbutrin XL 150mg poqd Psychiatric Findings - Problem List ([place] 1, 2,3) (1) Sedative hypnotic or anxiolytic dependence Current Visit: Yes Status: Acute (2) Major Depressive Disorder,Recurrent,Severe w/ P.F Current Visit: No Status: Active (3) Alcohol dependence Current Visit: No Status: Acute (4) Heroin dependence Current Visit: No Status: Acute (5) Opioid dependence with withdrawal Current Visit: No Status: Acute (6) Cocaine dependence Current Visit: No Status: Chronic Qualifiers: Substance use status: uncomplicated Qualified Code(s): F14.20 - Cocaine dependence, uncomplicated (7) Substance induced mood disorder Current Visit: No Status: Chronic - Initial Treatment Plan Initial Treatment Plan: Trazodone 150mg po qhs. Gabapentin 100mg po tid. Wellbutrin XL 150mg poqd
[2018-07-31] MEDS: chlordiazePOXIDE HCL 25 MG CAPSULE PO PRN ×2 (09:20→14:04)
--- NOTE | 2018-07-31 09:29 | PN ---
S CIWA - CIWA Score Nausea/Vomitin-No Nausea/No Vomiting Muscle Tremors: 4-Moderate,w/Arms Extend Anxiety: 4-Mod. Anxious/Guarded Agitation: 4-Moderately Restless Paroxysmal Sweats: 3 Orientation: 0-Oriented Tacttile Disturbances: 0-None Auditory Disturbances: 0-None Visual Disturbances: 0-None Headache: 0-None Present CIWA-Ar Total Score: 15 [facility] Progress Note (SOAP) Subjective: very anxious sweats shakes interrupted sleep body aches Objective: 07/31/18 09:28 Vital Signs Temperature 97.7 F 07/31/18 07:43 Pulse Rate 70 07/31/18 07:43 Respiratory Rate 18 07/31/18 07:43 Blood Pressure 120/73 07/31/18 07:43 O2 Sat by Pulse Oximetry (%) labs pending aaox3 ambulating no acute distress Assessment: 07/31/18 09:29 withdrawal sx Plan: continue detox increase fluids labs pending
[2018-07-31] MEDS: PRENATAL VITAMINS W/ FOLIC ACID TABLET (FP) PO SCH (10:30)
[2018-07-31 12:46] LABS: ANION GAP 4 MMOL/L (8-16); BLOOD UREA NITROGEN 21 mg/dL (7-18); CHLORIDE 109 mmol/L (98-107); CO2 27 mmol/L (21-32); CREATININE 1.3 mg/dL (0.55-1.3); GLUCOSE,RANDOM 92 mg/dL (74-106); POTASSIUM 4.5 mmol/L (3.5-5.1); SODIUM 140 mmol/L (136-145)
[2018-07-31 12:47] LABS: ALK PHOS 63 U/L (45-117); BILIRUBIN,TOTAL 0.5 mg/dL (0.2-1); HEMATOCRIT 41.6 % (35.4-49); MCH 32.1 pg (25.7-33.7); MCHC 33.7 g/dl (32.0-35.9); MEAN CELL VOLUME 95.2 fl (80-96); MEAN PLT VOLUME 8.6 fl (7.5-11.1); PLATELET COUNT 282 K/MM3 (134-434); RBC 4.36 M/mm3 (4.00-5.60); RDW 15.2 % (11.9-15.9); SGOT/AST 14 U/L (15-37); SGPT/ALT 16 U/L (13-61); TOT PROT 7.4 g/dl (6.4-8.2); WHITE BLOOD COUNT 7.7 K/mm3 (4.0-10.0)
[2018-07-31] MEDS: POLYETHYLENE GLYCOL 3350 119 GM BTL PO SCH ×2 (13:59→22:11)
[2018-07-31] MEDS: GABAPENTIN 100 MG CAPSULE (FP) PO SCH ×2 (14:03→22:10)
[2018-07-31] MEDS: THIAMINE HCL 100 MG TABLET (FP) PO SCH (22:10)
[2018-07-31] MEDS: traZODone HCL 50 MG TABLET (FP) PO SCH (22:10)
[2018-08-01] MEDS: chlordiazePOXIDE HCL 25 MG CAPSULE PO PRN ×2 (03:06→14:30)
[2018-08-01] MEDS: GABAPENTIN 100 MG CAPSULE (FP) PO SCH ×3 (05:50→22:11)
[2018-08-01] MEDS: chlordiazePOXIDE HCL 25 MG CAPSULE PO SCH ×3 (05:51→17:13)
[2018-08-01] MEDS: POLYETHYLENE GLYCOL 3350 119 GM BTL PO SCH ×2 (10:20→22:11)
[2018-08-01] MEDS: PRENATAL VITAMINS W/ FOLIC ACID TABLET (FP) PO SCH (10:21)
[2018-08-01] MEDS: NICOTINE POLACRILEX 4 MG GUM BUC PRN ×2 (11:04→13:25)
--- NOTE | 2018-08-01 11:10 | PN ---
S CIWA - CIWA Score Nausea/Vomitin-No Nausea/No Vomiting Muscle Tremors: 3 Anxiety: 3 Agitation: 3 Paroxysmal Sweats: 3 Orientation: 0-Oriented Tacttile Disturbances: 0-None Auditory Disturbances: 0-None Visual Disturbances: 0-None Headache: 0-None Present CIWA-Ar Total Score: 12 S Progress Note (SOAP) Subjective: sweats interrupted sleep anxiety Objective: 08/01/18 11:10 Vital Signs Temperature 97.9 F 08/01/18 09:42 Pulse Rate 63 08/01/18 09:42 Respiratory Rate 18 08/01/18 09:42 Blood Pressure 115/64 08/01/18 09:42 O2 Sat by Pulse Oximetry (%) Laboratory Tests 07/31/18 07/31/18 07/31/18 07:00 07:00 07:00 WBC 7.7 RBC 4.36 Hgb 14.0 Hct 41.6 MCV 95.2 MCH 32.1 MCHC 33.7 RDW 15.2 Plt Count 282 D MPV 8.6 D Sodium 140 Potassium 4.5 Chloride 109 H Carbon Dioxide 27 Anion Gap 4 L BUN 21 H Creatinine 1.3 Creat Clearance w eGFR 57.53 Random Glucose 92 Calcium 9.0 Total Bilirubin 0.5 AST 14 L ALT 16 Alkaline Phosphatase 63 Total Protein 7.4 Albumin 4.0 RPR Titer Nonreactive aaox3 ambulating no acute distress Assessment: 08/01/18 11:10 withdrawal sx Plan: continue detox increase fluids
[2018-08-01] MEDS: THIAMINE HCL 100 MG TABLET (FP) PO SCH (22:10)
[2018-08-01] MEDS: traZODone HCL 50 MG TABLET (FP) PO SCH (22:10)
[2018-08-01] MEDS: chlordiazePOXIDE 5 MG CAPSULE PO SCH (22:11)
[2018-08-02] MEDS: MELATONIN 5 MG TABLETS PO PRN ×2 (01:23→21:34)
[2018-08-02] MEDS: MAGNESIUM HYDROX 2400MG/30ML ORAL SUSPENSION 30 ML CUP PO PRN (01:23)
[2018-08-02] MEDS: chlordiazePOXIDE 5 MG CAPSULE PO SCH ×2 (05:17→10:32)
[2018-08-02] MEDS: NICOTINE POLACRILEX 4 MG GUM BUC PRN ×2 (05:18→16:55)
[2018-08-02] MEDS: GABAPENTIN 100 MG CAPSULE (FP) PO SCH ×3 (06:57→21:34)
--- NOTE | 2018-08-02 09:54 | PN ---
[facility] Progress Note (SOAP) Subjective: agitation i have toe/feet fungus Objective: 08/02/18 09:49 Vital Signs Temperature 98.2 F 08/02/18 09:29 Pulse Rate 71 08/02/18 09:29 Respiratory Rate 18 08/02/18 09:29 Blood Pressure 114/65 08/02/18 09:29 O2 Sat by Pulse Oximetry (%) aaox3 ambulating no acute distress Assessment: 08/02/18 09:53 mild withdrawals Plan: continue detox increase fluids tinactin cream ordered d/c in am
--- NOTE | 2018-08-02 10:31 | PN ---
S Progress Note Note: pt agreed to go to rehab today and is feeling fine. pt will be d/c to [facility] rehab today.
[2018-08-02] MEDS: PRENATAL VITAMINS W/ FOLIC ACID TABLET (FP) PO SCH (10:32)
[2018-08-02] MEDS: POLYETHYLENE GLYCOL 3350 119 GM BTL PO SCH ×2 (10:33→21:35)
--- NOTE | 2018-08-02 11:27 | DS ---
[facility] Detox Discharge Summary Admission Date: 07/30/18 Discharge Date: 08/02/18 - History Present History: Alcohol Dependence, Cocaine Dependence, Opioid Dependence, Sedative Dependence - Physical Exam Results Vital Signs: Vital Signs Temperature 98.2 F 08/02/18 09:29 Pulse Rate 71 08/02/18 09:29 Respiratory Rate 18 08/02/18 09:29 Blood Pressure 114/65 08/02/18 09:29 O2 Sat by Pulse Oximetry (%) - Treatment Hospital Course: Detox Protocol Followed, Detoxed Safely, Responded well, Discharged Condition Good, Rehab Referral Accepted - Medication Discharge Medications: Ambulatory Orders Lurasidone HCl [Latuda -] 20 mg PO DAILY #30 tablet 06/20/18 Bupropion HCl [Wellbutrin Xl -] 150 mg PO DAILY #30 tab.sr.24h 07/31/18 Gabapentin [Neurontin -] 100 mg PO Q8H #90 capsule 07/31/18 Trazodone HCl 150 mg PO HS #30 tablet 07/31/18 - Diagnosis (1) Sedative hypnotic or anxiolytic dependence Current Visit: Yes Status: Chronic (2) Major Depressive Disorder,Recurrent,Severe w/ P.F Current Visit: No Status: Active (3) Posttraumatic stress disorder Current Visit: No Status: Active (4) Alcohol dependence with uncomplicated withdrawal Current Visit: Yes Status: Chronic (5) Benzodiazepine dependence Current Visit: Yes Status: Acute (6) Depressive disorder Current Visit: No Status: Acute (7) Cannabis dependence Current Visit: Yes Status: Chronic (8) Cocaine dependence Current Visit: Yes Status: Chronic Qualifiers: Substance use status: uncomplicated Qualified Code(s): F14.20 - Cocaine dependence, uncomplicated (9) Depression Current Visit: No Status: Chronic (10) Nicotine dependence Current Visit: Yes Status: Chronic Qualifiers: Nicotine product type: cigarettes Substance use status: uncomplicated Qualified Code(s): F17.210 - Nicotine dependence, cigarettes, uncomplicated (11) Substance induced mood disorder Current Visit: No Status: Chronic - AMA Did Patient Leave Against Medical Advice: No (pt referred to [facility])
[2018-08-02] MEDS: TOLNAFTATE 1% CREAM 15 GM TUBE TP SCH ×2 (13:05→21:36)
--- NOTE | 2018-08-02 13:18 | HP ---
[facility] Rehab Assess/Revision - Admission History Admitted to Rehab from: [facility] - Vital signs Vital Signs: Vital Signs Period Temp Pulse Resp BP Sys/Mariscal Pulse Ox Last 24 Hr 97 F-98.4 F 68-95 16-18 111-131/63-76 - Findings Detox History & Physical reviewed: Yes Concur with findings: Yes Inpatient Rehab Admission - Rehab Decision to Admit Inpatient rehab admission?: Yes - Initial Determination Are CD services needed?: Yes Free of communicable disease: Yes Not in need of hospitalization: Yes - Rehab Admission Criteria Previous failed treatment: Yes Poor recovery environment: Yes Comorbidities: Yes Lacks judgement: Yes Patient is meeting Inpatient Rehab admission criteria:: Yes
[2018-08-02] MEDS: MAGNESIUM CITRATE 300 ML BOTTLE PO PRN (14:45)
[2018-08-02] MEDS: THIAMINE HCL 100 MG TABLET (FP) PO SCH (21:34)
[2018-08-02] MEDS: traZODone HCL 50 MG TABLET (FP) PO SCH (21:34)
[2018-08-02] MEDS ORDERED: chlordiazePOXIDE HCL 10 MG CAPSULE PO SCH (23:00)
[2018-08-03] MEDS: GABAPENTIN 100 MG CAPSULE (FP) PO SCH ×3 (06:50→21:08)
[2018-08-03] MEDS: NICOTINE POLACRILEX 4 MG GUM BUC PRN ×3 (06:55→14:51)
[2018-08-03] MEDS: PRENATAL VITAMINS W/ FOLIC ACID TABLET (FP) PO SCH (10:06)
[2018-08-03] MEDS: POLYETHYLENE GLYCOL 3350 119 GM BTL PO SCH ×2 (10:10→21:07)
[2018-08-03] MEDS: TOLNAFTATE 1% CREAM 15 GM TUBE TP SCH ×2 (13:10→21:09)
[2018-08-03] MEDS ORDERED: PT OWN MED DRAWER 7, Y5N ONE ×2 (20:02→22:10)
[2018-08-03] MEDS: THIAMINE HCL 100 MG TABLET (FP) PO SCH (21:07)
[2018-08-03] MEDS: traZODone HCL 50 MG TABLET (FP) PO SCH (21:08)
[2018-08-03] MEDS: MELATONIN 5 MG TABLETS PO PRN (21:08)
[2018-08-04] MEDS: GABAPENTIN 100 MG CAPSULE (FP) PO SCH ×3 (05:52→22:10)
[2018-08-04] MEDS: NICOTINE POLACRILEX 4 MG GUM BUC PRN ×3 (06:00→14:52)
[2018-08-04] MEDS: MAGNESIUM CITRATE 300 ML BOTTLE PO PRN (08:27)
[2018-08-04] MEDS: POLYETHYLENE GLYCOL 3350 119 GM BTL PO SCH ×2 (09:32→22:12)
[2018-08-04] MEDS: PRENATAL VITAMINS W/ FOLIC ACID TABLET (FP) PO SCH (09:32)
[2018-08-04] MEDS: TOLNAFTATE 1% CREAM 15 GM TUBE TP SCH ×2 (09:32→22:11)
[2018-08-04] MEDS: MELATONIN 5 MG TABLETS PO PRN (22:09)
[2018-08-04] MEDS: traZODone HCL 50 MG TABLET (FP) PO SCH (22:09)
[2018-08-04] MEDS: THIAMINE HCL 100 MG TABLET (FP) PO SCH (22:10)
[2018-08-05] MEDS: NICOTINE POLACRILEX 4 MG GUM BUC PRN ×3 (03:30→12:16)
[2018-08-05] MEDS: GABAPENTIN 100 MG CAPSULE (FP) PO SCH ×2 (06:51→14:14)
[2018-08-05] MEDS: MAGNESIUM HYDROX 2400MG/30ML ORAL SUSPENSION 30 ML CUP PO PRN (06:51)
[2018-08-05] MEDS: PRENATAL VITAMINS W/ FOLIC ACID TABLET (FP) PO SCH (09:50)
[2018-08-05] MEDS: POLYETHYLENE GLYCOL 3350 119 GM BTL PO SCH ×2 (09:51→21:50)
[2018-08-05] MEDS: TOLNAFTATE 1% CREAM 15 GM TUBE TP SCH ×2 (09:51→21:50)
--- NOTE | 2018-08-05 14:31 | PN ---
S Progress Note Note: PATIENT PRESENTS WITH C/O ANXIETY WHICH IS NOT RELIEVED WITH CURRENT DOSE OF GABAPENTIN 100MG TID. PATIENT WAS ADMITTED TO REHAB FOR ETOH/BZO DEPENDENCE ON . PATIENT DENIES CHEST PAIN, PALPITATIONS, SWEATING AND TREMORS. Vital Signs Temperature 98.1 F 08/05/18 07:00 Pulse Rate 83 08/05/18 07:00 Respiratory Rate 18 08/05/18 07:00 Blood Pressure 98/60 08/05/18 07:00 O2 Sat by Pulse Oximetry (%) Laboratory Tests 07/31/18 07/31/18 07/31/18 07:00 07:00 07:00 WBC 7.7 RBC 4.36 Hgb 14.0 Hct 41.6 MCV 95.2 MCH 32.1 MCHC 33.7 RDW 15.2 Plt Count 282 D MPV 8.6 D Sodium 140 Potassium 4.5 Chloride 109 H Carbon Dioxide 27 Anion Gap 4 L BUN 21 H Creatinine 1.3 Creat Clearance w eGFR 57.53 Random Glucose 92 Calcium 9.0 Total Bilirubin 0.5 AST 14 L ALT 16 Alkaline Phosphatase 63 Total Protein 7.4 Albumin 4.0 RPR Titer Nonreactive PE: ALERT AND ORIENTED X 3 SKIN WARM AND DRY EXT FULL ROM, NO VISIBLE TREMORS ANXIOUS A/P: H/O BZO DEPENDENCE ANXIETY WILL RE-CONSULT WITH PSYCH FOR FOLLOW UP MONITOR CLINICALLY
[2018-08-05] MEDS ORDERED: hydrOXYzine PAMOATE 50 MG CAPSULE (FP) PO PRN (15:13)
--- NOTE | 2018-08-05 15:13 | PN ---
S Progress Note Note: Requested by [employer]OR to adjust Gabapentin dose for patient complaining of feeling anxious. He is currently on Gabapentin 100 mg po TID, Wellbutrin XL 150 mg po daily and Trazadone 150 mg po HS. Will titrate Gabapentin dose to 300 mg po TID and add Vistaril 50 mg po Q 4hrs prn for anxiety
[2018-08-05] MEDS ORDERED: POLYETHYLENE GLYCOL 3350 119 GM BTL PO ONE (16:34)
[2018-08-05] MEDS ORDERED: PT OWN MED DRAWER 7, Y5N ONE (16:47)
[2018-08-05] MEDS: THIAMINE HCL 100 MG TABLET (FP) PO SCH (21:49)
[2018-08-05] MEDS: traZODone HCL 50 MG TABLET (FP) PO SCH (21:49)
[2018-08-05] MEDS: GABAPENTIN 300 MG CAPSULE (FP) PO SCH (21:49)
[2018-08-05] MEDS: MELATONIN 5 MG TABLETS PO PRN (21:50)
[2018-08-06] MEDS: NICOTINE POLACRILEX 4 MG GUM BUC PRN ×4 (06:10→17:49)
[2018-08-06] MEDS: MAGNESIUM HYDROX 2400MG/30ML ORAL SUSPENSION 30 ML CUP PO PRN (06:10)
[2018-08-06] MEDS: GABAPENTIN 300 MG CAPSULE (FP) PO SCH ×3 (06:10→21:26)
[2018-08-06] MEDS: PRENATAL VITAMINS W/ FOLIC ACID TABLET (FP) PO SCH (09:48)
[2018-08-06] MEDS: TOLNAFTATE 1% CREAM 15 GM TUBE TP SCH ×2 (09:48→21:27)
[2018-08-06] MEDS: POLYETHYLENE GLYCOL 3350 119 GM BTL PO SCH ×2 (09:51→17:55)
[2018-08-06] MEDS ORDERED: PT OWN MED DRAWER 7, Y5N ONE ×2 (09:51→17:50)
[2018-08-06] MEDS: THIAMINE HCL 100 MG TABLET (FP) PO SCH (21:26)
[2018-08-06] MEDS: traZODone HCL 50 MG TABLET (FP) PO SCH (21:26)
[2018-08-06] MEDS: MELATONIN 5 MG TABLETS PO PRN (21:26)
[2018-08-07] MEDS: MAGNESIUM HYDROX 2400MG/30ML ORAL SUSPENSION 30 ML CUP PO PRN (04:21)
[2018-08-07] MEDS: GABAPENTIN 300 MG CAPSULE (FP) PO SCH ×3 (05:58→21:27)
[2018-08-07] MEDS ORDERED: POLYETHYLENE GLYCOL 3350 119 GM BTL PO SCH (09:00)
[2018-08-07] MEDS: PRENATAL VITAMINS W/ FOLIC ACID TABLET (FP) PO SCH (09:47)
[2018-08-07] MEDS: POLYETHYLENE GLYCOL 3350 119 GM BTL PO SCH ×2 (09:48→18:40)
[2018-08-07] MEDS: TOLNAFTATE 1% CREAM 15 GM TUBE TP SCH ×2 (09:48→21:42)
[2018-08-07] MEDS: NICOTINE POLACRILEX 4 MG GUM BUC PRN ×2 (13:50→17:25)
[2018-08-07] MEDS: THIAMINE HCL 100 MG TABLET (FP) PO SCH (21:27)
[2018-08-07] MEDS: MELATONIN 5 MG TABLETS PO PRN (21:27)
[2018-08-07] MEDS: traZODone HCL 50 MG TABLET (FP) PO SCH (21:27)
--- NOTE | 2018-08-08 01:31 | PN ---
[facility] Progress Note Note: Patient reports that he was going to the bathroom, got lightheaded and fell to the back. Patient has a large contusion to the right mid back and left ring finger is twisted. Patient rated pain now at 5/10. Guarding behavior noted. Fall was unwitnessed. Fall protocol #1 initiated. Patient is being transferred to ER. Endorsed to Vital Signs Temperature 97.5 F L 08/08/18 01:32 Pulse Rate 58 L 08/08/18 01:32 Respiratory Rate 16 08/08/18 01:32 Blood Pressure 80/43 L 08/08/18 01:32 O2 Sat by Pulse Oximetry (%) Laboratory Last Values WBC 7.7 K/mm3 (4.0-10.0) 07/31/18 07:00 RBC 4.36 M/mm3 (4.00-5.60) 07/31/18 07:00 Hgb 14.0 GM/dL (11.7-16.9) 07/31/18 07:00 Hct 41.6 % (35.4-49) 07/31/18 07:00 MCV 95.2 fl (80-96) 07/31/18 07:00 MCH 32.1 pg (25.7-33.7) 07/31/18 07:00 MCHC 33.7 g/dl (32.0-35.9) 07/31/18 07:00 RDW 15.2 % (11.9-15.9) 07/31/18 07:00 Plt Count 282 K/MM3 (134-434) D 07/31/18 07:00 MPV 8.6 fl (7.5-11.1) D 07/31/18 07:00 Sodium 140 mmol/L (136-145) 07/31/18 07:00 Potassium 4.5 mmol/L (3.5-5.1) 07/31/18 07:00 Chloride 109 mmol/L (98-107) H 07/31/18 07:00 Carbon Dioxide 27 mmol/L (21-32) 07/31/18 07:00 Anion Gap 4 MMOL/L (8-16) L 07/31/18 07:00 BUN 21 mg/dL (7-18) H 07/31/18 07:00 Creatinine 1.3 mg/dL (0.55-1.3) 07/31/18 07:00 Creat Clearance w eGFR 57.53 (>60) 07/31/18 07:00 Random Glucose 92 mg/dL (74-106) 07/31/18 07:00 Calcium 9.0 mg/dL (8.5-10.1) 07/31/18 07:00 Total Bilirubin 0.5 mg/dL (0.2-1) 07/31/18 07:00 AST 14 U/L (15-37) L 07/31/18 07:00 ALT 16 U/L (13-61) 07/31/18 07:00 Alkaline Phosphatase 63 U/L (45-117) 07/31/18 07:00 Total Protein 7.4 g/dl (6.4-8.2) 07/31/18 07:00 Albumin 4.0 g/dl (3.4-5.0) 07/31/18 07:00 RPR Titer Nonreactive (NONREACTIVE) 07/31/18 07:00 Action: Transfer to ER for further evaluation
[2018-08-08] MEDS: GABAPENTIN 300 MG CAPSULE (FP) PO SCH ×3 (05:56→21:27)
[2018-08-08] MEDS: NICOTINE POLACRILEX 4 MG GUM BUC PRN ×4 (06:20→17:33)
[2018-08-08] MEDS: PRENATAL VITAMINS W/ FOLIC ACID TABLET (FP) PO SCH (10:02)
[2018-08-08] MEDS: TOLNAFTATE 1% CREAM 15 GM TUBE TP SCH ×2 (10:04→21:28)
[2018-08-08] MEDS: POLYETHYLENE GLYCOL 3350 119 GM BTL PO SCH ×3 (10:04→21:26)
[2018-08-08] MEDS: MELATONIN 5 MG TABLETS PO PRN (21:27)
[2018-08-08] MEDS: THIAMINE HCL 100 MG TABLET (FP) PO SCH (21:27)
[2018-08-08] MEDS: traZODone HCL 50 MG TABLET (FP) PO SCH (21:27)
[2018-08-09] MEDS: GABAPENTIN 300 MG CAPSULE (FP) PO SCH ×3 (05:50→23:36)
[2018-08-09] MEDS: POLYETHYLENE GLYCOL 3350 119 GM BTL PO SCH ×3 (05:50→23:36)
[2018-08-09] MEDS: NICOTINE POLACRILEX 4 MG GUM BUC PRN ×4 (06:22→17:24)
[2018-08-09] MEDS: TOLNAFTATE 1% CREAM 15 GM TUBE TP SCH ×2 (09:43→23:36)
[2018-08-09] MEDS: PRENATAL VITAMINS W/ FOLIC ACID TABLET (FP) PO SCH (09:43)
[2018-08-09] MEDS: traZODone HCL 50 MG TABLET (FP) PO SCH (23:36)
[2018-08-09] MEDS: THIAMINE HCL 100 MG TABLET (FP) PO SCH (23:37)
[2018-08-09] MEDS: MELATONIN 5 MG TABLETS PO PRN (23:37)
[2018-08-10] MEDS: GABAPENTIN 300 MG CAPSULE (FP) PO SCH ×3 (05:57→21:13)
[2018-08-10] MEDS: NICOTINE POLACRILEX 4 MG GUM BUC PRN ×4 (05:58→18:34)
[2018-08-10] MEDS: POLYETHYLENE GLYCOL 3350 119 GM BTL PO SCH ×3 (05:59→21:13)
[2018-08-10] MEDS: TOLNAFTATE 1% CREAM 15 GM TUBE TP SCH ×2 (09:33→21:59)
[2018-08-10] MEDS: PRENATAL VITAMINS W/ FOLIC ACID TABLET (FP) PO SCH (09:33)
[2018-08-10] MEDS: traZODone HCL 50 MG TABLET (FP) PO SCH (21:13)
[2018-08-10] MEDS: THIAMINE HCL 100 MG TABLET (FP) PO SCH (21:13)
[2018-08-10] MEDS: MELATONIN 5 MG TABLETS PO PRN (21:14)
[2018-08-11] MEDS: GABAPENTIN 300 MG CAPSULE (FP) PO SCH ×3 (06:40→21:43)
[2018-08-11] MEDS: POLYETHYLENE GLYCOL 3350 119 GM BTL PO SCH ×3 (06:42→21:43)
[2018-08-11] MEDS: NICOTINE POLACRILEX 4 MG GUM BUC PRN ×4 (06:42→16:17)
[2018-08-11] MEDS: TOLNAFTATE 1% CREAM 15 GM TUBE TP SCH ×2 (09:29→22:08)
[2018-08-11] MEDS: PRENATAL VITAMINS W/ FOLIC ACID TABLET (FP) PO SCH (09:29)
[2018-08-11] MEDS: MAGNESIUM HYDROX 2400MG/30ML ORAL SUSPENSION 30 ML CUP PO PRN (09:30)
[2018-08-11] MEDS: THIAMINE HCL 100 MG TABLET (FP) PO SCH (21:42)
[2018-08-11] MEDS: traZODone HCL 50 MG TABLET (FP) PO SCH (21:43)
[2018-08-11] MEDS: MELATONIN 5 MG TABLETS PO PRN (21:43)
[2018-08-12] MEDS: POLYETHYLENE GLYCOL 3350 119 GM BTL PO SCH ×3 (05:47→21:04)
[2018-08-12] MEDS: GABAPENTIN 300 MG CAPSULE (FP) PO SCH ×3 (05:48→21:04)
[2018-08-12] MEDS: NICOTINE POLACRILEX 4 MG GUM BUC PRN ×4 (05:48→16:37)
[2018-08-12] MEDS: TOLNAFTATE 1% CREAM 15 GM TUBE TP SCH ×2 (09:53→21:03)
[2018-08-12] MEDS: PRENATAL VITAMINS W/ FOLIC ACID TABLET (FP) PO SCH (09:53)
[2018-08-12] MEDS: MAGNESIUM HYDROX 2400MG/30ML ORAL SUSPENSION 30 ML CUP PO PRN (16:37)
[2018-08-12] MEDS: THIAMINE HCL 100 MG TABLET (FP) PO SCH (21:02)
[2018-08-12] MEDS: traZODone HCL 50 MG TABLET (FP) PO SCH (21:03)
[2018-08-12] MEDS: MELATONIN 5 MG TABLETS PO PRN (21:03)
[2018-08-13] MEDS: POLYETHYLENE GLYCOL 3350 119 GM BTL PO SCH ×3 (06:03→21:11)
[2018-08-13] MEDS: GABAPENTIN 300 MG CAPSULE (FP) PO SCH ×3 (06:03→21:10)
[2018-08-13] MEDS: NICOTINE POLACRILEX 4 MG GUM BUC PRN ×6 (06:05→21:12)
[2018-08-13] MEDS: PRENATAL VITAMINS W/ FOLIC ACID TABLET (FP) PO SCH (09:41)
[2018-08-13] MEDS: TOLNAFTATE 1% CREAM 15 GM TUBE TP SCH ×2 (09:42→21:44)
[2018-08-13] MEDS: MAGNESIUM HYDROX 2400MG/30ML ORAL SUSPENSION 30 ML CUP PO PRN (16:39)
[2018-08-13] MEDS: THIAMINE HCL 100 MG TABLET (FP) PO SCH (21:10)
[2018-08-13] MEDS: traZODone HCL 50 MG TABLET (FP) PO SCH (21:10)
[2018-08-13] MEDS: MELATONIN 5 MG TABLETS PO PRN (21:10)
[2018-08-14] MEDS: GABAPENTIN 300 MG CAPSULE (FP) PO SCH ×3 (05:56→21:07)
[2018-08-14] MEDS: POLYETHYLENE GLYCOL 3350 119 GM BTL PO SCH ×3 (05:56→21:07)
[2018-08-14] MEDS: TOLNAFTATE 1% CREAM 15 GM TUBE TP SCH ×2 (09:48→21:56)
[2018-08-14] MEDS: PRENATAL VITAMINS W/ FOLIC ACID TABLET (FP) PO SCH (09:48)
[2018-08-14] MEDS: NICOTINE POLACRILEX 4 MG GUM BUC PRN ×4 (09:49→21:08)
[2018-08-14] MEDS: MAGNESIUM HYDROX 2400MG/30ML ORAL SUSPENSION 30 ML CUP PO PRN (17:48)
[2018-08-14] MEDS: THIAMINE HCL 100 MG TABLET (FP) PO SCH (21:06)
[2018-08-14] MEDS: MELATONIN 5 MG TABLETS PO PRN (21:07)
[2018-08-14] MEDS: traZODone HCL 50 MG TABLET (FP) PO SCH (21:07)
[2018-08-15] MEDS: GABAPENTIN 300 MG CAPSULE (FP) PO SCH ×3 (06:11→21:18)
[2018-08-15] MEDS: POLYETHYLENE GLYCOL 3350 119 GM BTL PO SCH ×3 (06:12→21:19)
[2018-08-15] MEDS: PRENATAL VITAMINS W/ FOLIC ACID TABLET (FP) PO SCH (09:40)
[2018-08-15] MEDS: TOLNAFTATE 1% CREAM 15 GM TUBE TP SCH ×2 (09:41→21:57)
[2018-08-15] MEDS: NICOTINE POLACRILEX 4 MG GUM BUC PRN ×3 (09:41→21:20)
[2018-08-15] MEDS: MAGNESIUM HYDROX 2400MG/30ML ORAL SUSPENSION 30 ML CUP PO PRN (16:26)
[2018-08-15] MEDS: traZODone HCL 50 MG TABLET (FP) PO SCH (21:18)
[2018-08-15] MEDS: MELATONIN 5 MG TABLETS PO PRN (21:18)
[2018-08-15] MEDS: THIAMINE HCL 100 MG TABLET (FP) PO SCH (21:18)
[2018-08-16] MEDS: GABAPENTIN 300 MG CAPSULE (FP) PO SCH ×3 (06:22→21:02)
[2018-08-16] MEDS: POLYETHYLENE GLYCOL 3350 119 GM BTL PO SCH ×3 (06:22→21:03)
[2018-08-16] MEDS: PRENATAL VITAMINS W/ FOLIC ACID TABLET (FP) PO SCH (09:41)
[2018-08-16] MEDS: TOLNAFTATE 1% CREAM 15 GM TUBE TP SCH ×2 (09:41→21:45)
[2018-08-16] MEDS: NICOTINE POLACRILEX 4 MG GUM BUC PRN ×3 (09:42→16:40)
[2018-08-16] MEDS: MAGNESIUM HYDROX 2400MG/30ML ORAL SUSPENSION 30 ML CUP PO PRN (16:39)
[2018-08-16] MEDS: THIAMINE HCL 100 MG TABLET (FP) PO SCH (21:02)
[2018-08-16] MEDS: traZODone HCL 50 MG TABLET (FP) PO SCH (21:02)
[2018-08-16] MEDS: MELATONIN 5 MG TABLETS PO PRN (21:02)
[2018-08-17] MEDS: GABAPENTIN 300 MG CAPSULE (FP) PO SCH ×3 (06:21→21:05)
[2018-08-17] MEDS: POLYETHYLENE GLYCOL 3350 119 GM BTL PO SCH ×3 (06:21→21:04)
[2018-08-17] MEDS: NICOTINE POLACRILEX 4 MG GUM BUC PRN ×5 (06:23→17:33)
[2018-08-17] MEDS: TOLNAFTATE 1% CREAM 15 GM TUBE TP SCH ×2 (09:49→21:03)
[2018-08-17] MEDS: PRENATAL VITAMINS W/ FOLIC ACID TABLET (FP) PO SCH (09:49)
[2018-08-17] MEDS: MAGNESIUM HYDROX 2400MG/30ML ORAL SUSPENSION 30 ML CUP PO PRN (09:50)
[2018-08-17] MEDS ORDERED: PT OWN MED DRAWER 7, Y5N ONE (14:51)
[2018-08-17] MEDS: THIAMINE HCL 100 MG TABLET (FP) PO SCH (21:04)
[2018-08-17] MEDS: traZODone HCL 50 MG TABLET (FP) PO SCH (21:04)
[2018-08-17] MEDS: MELATONIN 5 MG TABLETS PO PRN (21:04)
[2018-08-18] MEDS: GABAPENTIN 300 MG CAPSULE (FP) PO SCH ×3 (06:07→22:14)
[2018-08-18] MEDS: POLYETHYLENE GLYCOL 3350 119 GM BTL PO SCH ×3 (06:07→22:12)
[2018-08-18] MEDS: NICOTINE POLACRILEX 4 MG GUM BUC PRN ×3 (06:08→15:47)
[2018-08-18] MEDS: PRENATAL VITAMINS W/ FOLIC ACID TABLET (FP) PO SCH (09:50)
[2018-08-18] MEDS: TOLNAFTATE 1% CREAM 15 GM TUBE TP SCH ×2 (09:50→22:12)
[2018-08-18] MEDS: MAGNESIUM HYDROX 2400MG/30ML ORAL SUSPENSION 30 ML CUP PO PRN (09:51)
[2018-08-18] MEDS ORDERED: PT OWN MED DRAWER 7, Y5N ONE (21:44)
[2018-08-18] MEDS: MELATONIN 5 MG TABLETS PO PRN (22:14)
[2018-08-18] MEDS: THIAMINE HCL 100 MG TABLET (FP) PO SCH (22:14)
[2018-08-18] MEDS: traZODone HCL 50 MG TABLET (FP) PO SCH (22:14)
[2018-08-19] MEDS: POLYETHYLENE GLYCOL 3350 119 GM BTL PO SCH ×3 (06:13→21:18)
[2018-08-19] MEDS: NICOTINE POLACRILEX 4 MG GUM BUC PRN ×4 (06:13→17:33)
[2018-08-19] MEDS: GABAPENTIN 300 MG CAPSULE (FP) PO SCH ×3 (06:13→21:17)
[2018-08-19] MEDS: MAGNESIUM HYDROX 2400MG/30ML ORAL SUSPENSION 30 ML CUP PO PRN (09:55)
[2018-08-19] MEDS: TOLNAFTATE 1% CREAM 15 GM TUBE TP SCH ×2 (09:55→21:18)
[2018-08-19] MEDS: PRENATAL VITAMINS W/ FOLIC ACID TABLET (FP) PO SCH (09:55)
[2018-08-19] MEDS: THIAMINE HCL 100 MG TABLET (FP) PO SCH (21:17)
[2018-08-19] MEDS: traZODone HCL 50 MG TABLET (FP) PO SCH (21:17)
[2018-08-19] MEDS: MELATONIN 5 MG TABLETS PO PRN (21:17)
[2018-08-20] MEDS: NICOTINE POLACRILEX 4 MG GUM BUC PRN ×2 (06:12→17:38)
[2018-08-20] MEDS: GABAPENTIN 300 MG CAPSULE (FP) PO SCH ×3 (06:12→21:01)
[2018-08-20] MEDS: POLYETHYLENE GLYCOL 3350 119 GM BTL PO SCH ×3 (06:12→21:02)
[2018-08-20] MEDS: PRENATAL VITAMINS W/ FOLIC ACID TABLET (FP) PO SCH (09:55)
[2018-08-20] MEDS: TOLNAFTATE 1% CREAM 15 GM TUBE TP SCH ×2 (09:55→21:43)
[2018-08-20] MEDS: MAGNESIUM HYDROX 2400MG/30ML ORAL SUSPENSION 30 ML CUP PO PRN (09:56)
[2018-08-20] MEDS ORDERED: PT OWN MED DRAWER 7, Y5N ONE (12:10)
[2018-08-20] MEDS: THIAMINE HCL 100 MG TABLET (FP) PO SCH (21:01)
[2018-08-20] MEDS: MELATONIN 5 MG TABLETS PO PRN (21:01)
[2018-08-20] MEDS: traZODone HCL 50 MG TABLET (FP) PO SCH (21:01)
[2018-08-21] MEDS: POLYETHYLENE GLYCOL 3350 119 GM BTL PO SCH ×3 (06:16→22:14)
[2018-08-21] MEDS: GABAPENTIN 300 MG CAPSULE (FP) PO SCH ×3 (06:16→21:21)
[2018-08-21] MEDS: NICOTINE POLACRILEX 4 MG GUM BUC PRN ×2 (06:18→14:03)
[2018-08-21] MEDS: TOLNAFTATE 1% CREAM 15 GM TUBE TP SCH ×2 (09:43→21:21)
[2018-08-21] MEDS: MAGNESIUM HYDROX 2400MG/30ML ORAL SUSPENSION 30 ML CUP PO PRN (09:43)
[2018-08-21] MEDS: PRENATAL VITAMINS W/ FOLIC ACID TABLET (FP) PO SCH (09:43)
[2018-08-21] MEDS ORDERED: PT OWN MED DRAWER 7, Y5N ONE ×3 (13:29→19:52)
[2018-08-21] MEDS: THIAMINE HCL 100 MG TABLET (FP) PO SCH (21:21)
[2018-08-21] MEDS: MELATONIN 5 MG TABLETS PO PRN (21:21)
[2018-08-21] MEDS: traZODone HCL 50 MG TABLET (FP) PO SCH (21:21)
[2018-08-22] MEDS: NICOTINE POLACRILEX 4 MG GUM BUC PRN ×3 (06:11→14:18)
[2018-08-22] MEDS: GABAPENTIN 300 MG CAPSULE (FP) PO SCH ×3 (06:11→21:09)
[2018-08-22] MEDS: POLYETHYLENE GLYCOL 3350 119 GM BTL PO SCH ×3 (06:11→21:07)
[2018-08-22] MEDS: PRENATAL VITAMINS W/ FOLIC ACID TABLET (FP) PO SCH (09:42)
[2018-08-22] MEDS: MAGNESIUM HYDROX 2400MG/30ML ORAL SUSPENSION 30 ML CUP PO PRN (09:43)
[2018-08-22] MEDS: TOLNAFTATE 1% CREAM 15 GM TUBE TP SCH ×2 (09:44→21:07)
[2018-08-22] MEDS: traZODone HCL 50 MG TABLET (FP) PO SCH (21:09)
[2018-08-22] MEDS: MELATONIN 5 MG TABLETS PO PRN (21:09)
[2018-08-22] MEDS: THIAMINE HCL 100 MG TABLET (FP) PO SCH (21:10)
[2018-08-23] MEDS: POLYETHYLENE GLYCOL 3350 119 GM BTL PO SCH ×3 (05:49→21:06)
[2018-08-23] MEDS: GABAPENTIN 300 MG CAPSULE (FP) PO SCH ×3 (05:49→21:06)
[2018-08-23] MEDS: NICOTINE POLACRILEX 4 MG GUM BUC PRN ×4 (05:53→17:16)
[2018-08-23] MEDS: TOLNAFTATE 1% CREAM 15 GM TUBE TP SCH ×2 (09:44→21:39)
[2018-08-23] MEDS: PRENATAL VITAMINS W/ FOLIC ACID TABLET (FP) PO SCH (09:44)
[2018-08-23] MEDS ORDERED: PT OWN MED DRAWER 7, Y5N ONE (13:49)
[2018-08-23] MEDS: THIAMINE HCL 100 MG TABLET (FP) PO SCH (21:06)
[2018-08-23] MEDS: MELATONIN 5 MG TABLETS PO PRN (21:06)
[2018-08-23] MEDS: traZODone HCL 50 MG TABLET (FP) PO SCH (21:06)
[2018-08-24] MEDS: POLYETHYLENE GLYCOL 3350 119 GM BTL PO SCH ×3 (06:08→21:04)
[2018-08-24] MEDS: GABAPENTIN 300 MG CAPSULE (FP) PO SCH ×3 (06:08→21:04)
[2018-08-24] MEDS: NICOTINE POLACRILEX 4 MG GUM BUC PRN ×4 (06:08→18:54)
[2018-08-24] MEDS: TOLNAFTATE 1% CREAM 15 GM TUBE TP SCH ×2 (09:52→21:38)
[2018-08-24] MEDS: PRENATAL VITAMINS W/ FOLIC ACID TABLET (FP) PO SCH (09:53)
[2018-08-24] MEDS: MAGNESIUM HYDROX 2400MG/30ML ORAL SUSPENSION 30 ML CUP PO PRN (09:54)
[2018-08-24] MEDS: traZODone HCL 50 MG TABLET (FP) PO SCH (21:03)
[2018-08-24] MEDS: MELATONIN 5 MG TABLETS PO PRN (21:03)
[2018-08-24] MEDS: THIAMINE HCL 100 MG TABLET (FP) PO SCH (21:03)
[2018-08-25] MEDS: GABAPENTIN 300 MG CAPSULE (FP) PO SCH ×3 (06:05→21:24)
[2018-08-25] MEDS: POLYETHYLENE GLYCOL 3350 119 GM BTL PO SCH ×3 (06:06→21:25)
[2018-08-25] MEDS: NICOTINE POLACRILEX 4 MG GUM BUC PRN ×3 (06:06→12:45)
[2018-08-25 06:41] VITALS: TEMP 98
[2018-08-25] MEDS: PRENATAL VITAMINS W/ FOLIC ACID TABLET (FP) PO SCH (09:20)
[2018-08-25] MEDS: TOLNAFTATE 1% CREAM 15 GM TUBE TP SCH ×2 (09:20→21:27)
[2018-08-25] MEDS: MAGNESIUM HYDROX 2400MG/30ML ORAL SUSPENSION 30 ML CUP PO PRN (09:22)
--- NOTE | 2018-08-25 16:59 | PN ---
[facility] Progress Note Note: Patient is scheduled for discharge tomorrow. Scripts for 30 day supply of medications(Gabapentin, Trazadone, Wellbutrin Xl) will be electronically transmitted to [facility] at [facility] [address] [place] [id number]
[2018-08-25] MEDS: MELATONIN 5 MG TABLETS PO PRN (21:24)
[2018-08-25] MEDS: THIAMINE HCL 100 MG TABLET (FP) PO SCH (21:24)
[2018-08-25] MEDS: traZODone HCL 50 MG TABLET (FP) PO SCH (21:25)
[2018-08-26] MEDS: NICOTINE POLACRILEX 4 MG GUM BUC PRN ×2 (06:03→09:05)
[2018-08-26] MEDS: GABAPENTIN 300 MG CAPSULE (FP) PO SCH (06:03)
[2018-08-26] MEDS: POLYETHYLENE GLYCOL 3350 119 GM BTL PO SCH (06:03)
[2018-08-26 07:06] VITALS: BP 113/73; PULSE 87
[2018-08-26] MEDS: PRENATAL VITAMINS W/ FOLIC ACID TABLET (FP) PO SCH (09:02)
[2018-08-26] MEDS: TOLNAFTATE 1% CREAM 15 GM TUBE TP SCH (09:03)
--- NOTE | 2018-08-26 09:35 | PN ---
[facility] Progress Note Note: REHAB DISCHARGE NOTE: PATIENT COMPLETED REHAB TREATMENT TODAY AND REPORTS ACCOMPLISHING ALL REHAB GOALS. PATIENT'S AFTER CARE SCHEDULED FOR [facility] 08/27/18 AT 1PM. PATIENT ENCOURAGED TO CONTINUE WITH AFTER CARE TREATMENT TO PREVENT RELAPSE AND TO FOLLOW UP WITH PCP WITHIN ONE WEEK OF DISCHARGE. PATIENT IS MEDICALLY STABLE AND DENIES SI/HI. Laboratory Tests 07/31/18 07/31/18 07/31/18 07:00 07:00 07:00 WBC 7.7 RBC 4.36 Hgb 14.0 Hct 41.6 MCV 95.2 MCH 32.1 MCHC 33.7 RDW 15.2 Plt Count 282 D MPV 8.6 D Sodium 140 Potassium 4.5 Chloride 109 H Carbon Dioxide 27 Anion Gap 4 L BUN 21 H Creatinine 1.3 Creat Clearance w eGFR 57.53 Random Glucose 92 Calcium 9.0 Total Bilirubin 0.5 AST 14 L ALT 16 Alkaline Phosphatase 63 Total Protein 7.4 Albumin 4.0 RPR Titer Nonreactive Vital Signs Period Temp Pulse Resp BP Sys/Mariscal Pulse Ox Last 24 Hr 98 F 87 18-18 113/73 Ambulatory Orders Lurasidone HCl [Latuda -] 20 mg PO DAILY #30 tablet 06/20/18 Bupropion HCl [Wellbutrin Xl -] 150 mg PO DAILY #30 tab.sr.24h 07/31/18 Gabapentin [Neurontin -] 100 mg PO Q8H #90 capsule 07/31/18 Trazodone HCl 150 mg PO HS #30 tablet 07/31/18 Bupropion HCl [Wellbutrin Xl -] 150 mg PO DAILY #30 tab.sr.24h 08/25/18 Gabapentin [Neurontin -] 300 mg PO TID #90 capsule 08/25/18 Trazodone HCl 150 mg PO HS #30 tablet 08/25/18
== END 2018-08-26 09:25 | disposition home or self-care (01) | DRG 895 ==
LOC: YASAS 14:20 → Y6N 18:49 → Y3W 08-02 13:16
PROVIDERS: ADMIT Surgery; ATTEND Neuromusculoskeletal Medicine & OMM
PROC: HZ2ZZZZ Detoxification Services for Substance Abuse Treatment (ICD-10-PCS; principal; 2018-07-30)
PROC: HZ42ZZZ Group Counseling for Substance Abuse Treatment, Cognitive-Behavioral (ICD-10-PCS; 2018-07-30)
DX: F10.230 Alcohol dependence with withdrawal, uncomplicated (principal); F14.20 Cocaine dependence, uncomplicated; F33.3 Major depressive disorder, recurrent, severe with psychotic symptoms; F13.230 Sedative, hypnotic or anxiolytic dependence with withdrawal, uncomplicated; F12.20 Cannabis dependence, uncomplicated; F17.210 Nicotine dependence, cigarettes, uncomplicated; F41.9 Anxiety disorder, unspecified; F43.10 Post-traumatic stress disorder, unspecified; F19.24 Other psychoactive substance dependence with psychoactive substance-induced mood disorder; G40.909 Epilepsy, unspecified, not intractable, without status epilepticus; Z86.69 Personal history of other diseases of the nervous system and sense organs; S20.229A Contusion of unspecified back wall of thorax, initial encounter; S69.82XA Other specified injuries of left wrist, hand and finger(s), initial encounter; W18.39XA Other fall on same level, initial encounter; Y93.89 Activity, other specified; Y92.238 Other place in hospital as the place of occurrence of the external cause
CPT/HCPCS: 36415; 73130-TC-LT-FY; 80053; 85027; 86593; 99281-25

== ENCOUNTER 2018-08-08 01:51 | Emergency (ER) | payer OTHER ==
[2018-08-08 02:38] VITALS: BP 113/71; PULSE 62; TEMP 98.4; BMI 21.7
--- NOTE | 2018-08-08 02:49 | PDOC ---
Attending Attestation - Resident Resident Name: Emilie Vasquez - ED Attending Attestation I have performed the following: I have examined & evaluated the patient, The case was reviewed & discussed with the resident, I agree w/resident's findings & plan - HPI HPI: 08/08/18 03:15 52-year-old male status post fall after standing up too quickly from bed currently in detox. Patient sustained a scrape to his back and has pain to the left fourth finger. There is no associated head injury loss of consciousness or abdominal pain. 08/08/18 03:15 - Physicial Exam PE: 08/08/18 03:16 Agree with resident's exam - Medical Decision Making 08/08/18 03:16 52-year-old male status post low velocity fall with an abrasion to the back and pain to the left fourth finger Back is nontender Plan for x-ray of the left hand with discharge pending results back to rehabilitation
[2018-08-08] MEDS ORDERED: ACETAMINOPHEN 325 MG TABLET (FP) PO ONE (03:02)
--- NOTE | 2018-08-08 03:02 | PDOC ---
History of Present Illness - General Chief Complaint: Injury Stated Complaint: FALL Time Seen by Provider: 08/08/18 02:40 - History of Present Illness Initial Comments: Navdeep Cooper is a 52yo man with a PMH of polysubstance abuse, MDD, anxiety, PTSD who presents from rehab following an apparent mechanical fall w/o LOC or head injury. He states that he got up overnight to use the bathroom, and fell on the way. He denies any symptoms preceding the fall, and he also denies any LOC or head injury. Mr Cooper was reporting L 4th finger pain, stating that he "twisted" the finger when he fell, and he was also noted to have an abrasion to the R back. He denies any pain to the area of the abrasion and says that he did not even know it was there until someone told him. He denies difficulty breathing or pleuritic pain. Currently, his only complaint is mild pain in the L 4th finger. Past History - Past Medical History Allergies/Adverse Reactions: Allergies Allergy/AdvReac Type Severity Reaction Status Date / Time No Known Allergies Allergy Verified 08/08/18 02:28 Home Medications: Ambulatory Orders Lurasidone HCl [Latuda -] 20 mg PO DAILY #30 tablet 06/20/18 Bupropion HCl [Wellbutrin Xl -] 150 mg PO DAILY #30 tab.sr.24h 07/31/18 Gabapentin [Neurontin -] 100 mg PO Q8H #90 capsule 07/31/18 Trazodone HCl 150 mg PO HS #30 tablet 07/31/18 Anemia: No Asthma: No Cancer: No Cardiac Disorders: No CVA: No COPD: No CHF: No Dementia: No Diabetes: No GI Disorders: No Disorders: No HTN: No Hypercholesterolemia: No Kidney Stones: No Liver Disease: No Seizures: No Thyroid Disease: No - Surgical History Abdominal Surgery: No Appendectomy: No Cardiac Surgery: No Cholecystectomy: No Lung Surgery: No Neurologic Surgery: No Orthopedic Surgery: No - Reproductive History Testicular Surgery: No - Immunization History Immunization Up to Date: No - Suicide/Smoking/Psychosocial Hx Smoking History: Current some day smoker Have you smoked in the past 12 months: Yes Number of Cigarettes Smoked Daily: 10 Cigars Per Day: 10 Information on smoking cessation initiated: No 'Breaking Loose' booklet given: 04/12/15 Hx Alcohol Use: No Drug/Substance Use Hx: No Substance Use Type: Alcohol, Cocaine, Heroin, Marijuana, Tranquilizers Hx Substance Use Treatment: Yes Review of Systems - Review of Systems Comments:: General: No fevers, no chills, no weight or appetite change, no malaise HEENT: No changes in vision, no changes in hearing, no congestion, no sore throat CV: No chest pain, no palpitations, no LE edema Pulm: No SOB, no cough, no wheezing GI: No nausea or vomiting, no change in bowel habits, no melena : No frequency, no urgency, no dysuria Musc: No back pain. See HPI Skin: No rash, no lesions, no erythema Endo: No excessive thirst, no heat/cold intolerance Heme: No unusual bruising or bleeding, no swollen glands Neuro: No syncope, no numbness/tingling, no focal weakness Vasc: No claudication Psych: No recent change in mood, no SI or HI *Physical Exam - Vital Signs Last Vital Signs Temp Pulse Resp BP Pulse Ox 98.4 F 62 16 113/71 100 08/08/18 01:51 08/08/18 01:51 08/08/18 01:51 08/08/18 01:51 08/08/18 01:51 - Physical Exam Comments: General: Comfortable, no acute distress, slightly tremulous HEENT: PERRL, EOMI, MMM, voice normal. No visible head injury. Cards: RRR, no murmur appreciated Pulm: Comfortable on room air, clear to auscultation bilaterally Abd: Soft, nontender, nondistended Ext: L hand without deformity, edema, erythema, laceration/abrasion. 4th finger with mild TTP over PIP. ROM intact, strength intact. Skin: Normal color, no rashes or lesions Neuro: A&Ox3, CN grossly intact, normal speech, motor/sensory grossly intact and symmetric Psych: Mood appropriate to situation Moderate Sedation - Procedure Monitoring Vital Signs: Procedure Monitoring Vital Signs Temperature 98.4 F 08/08/18 01:51 Pulse Rate 62 08/08/18 01:51 Respiratory Rate 16 08/08/18 01:51 Blood Pressure 113/71 08/08/18 01:51 O2 Sat by Pulse Oximetry (%) 100 08/08/18 01:51 Medical Decision Making - Medical Decision Making 08/08/18 03:01 Navdeep Cooper is a 52yo man with a PMH of polysubstance abuse, MDD, anxiety, PTSD who presents from rehab following an apparent mechanical fall w/o LOC or head injury. He presents with left 4th finger pain without obvious injury or limitation to ROM and an abrasion over the right posterior ribs without tenderness or pleuritic pain. - Very unlikely to have rib fractures given lack of pain. - Will obtain hand xrays to r/o fracture to L 4th finger - PO acetaminophen for pain. 08/08/18 03:48 - Hand xrays completed with splint in place. Will redo xrays - Feels significantly improved after acetaminophen 08/08/18 04:35 - Repeat xrays completed. Reviewed in ED with Dr Tatum. No acute fracture appreciated - Will d/c back to [facility]. Discussed with Dr Tatum. Emilie Vasquez PGY1 *DC/Admit/Observation/Transfer Diagnosis at time of Disposition: Fall, Finger pain, left - Discharge Dispostion Disposition: HOME Condition at time of disposition: Fair Decision to Admit order: No - Referrals - Patient Instructions Printed Discharge Instructions: DI for Finger Sprain Additional Instructions: Discharge Instructions: - You were seen in the emergency department for finger pain following a fall. You had xrays, and there is no fracture in your finger - You may use acetaminophen or ibuprofen for pain - If it is more comfortable you may tape your fingers together to help limit motion. However, you may continue to use your fingers as tolerated. - Follow up with your regular doctor if you continue to have significant pain in your finger after 2-3 days. - Seek medical care if your symptoms worsen, you are unable to use your fingers , you have difficulty breathing, you have additional falls, or you have any medical emergency. - Post Discharge Activity
[2018-08-08] MEDS ORDERED: ACETAMINOPHEN 325 MG TABLET (FP) ONE (03:09)
== END 2018-08-08 05:43 | disposition home or self-care (01) ==
LOC: JER 01:51
PROC: 2W3KX1Z Immobilization of Left Finger using Splint (ICD-10-PCS; principal; 2018-08-08)
DX: S20.411A Abrasion of right back wall of thorax, initial encounter (principal); M79.645 Pain in left finger(s); W18.39XA Other fall on same level, initial encounter; Y93.89 Activity, other specified; Y92.230 Patient room in hospital as the place of occurrence of the external cause; Y99.8 Other external cause status; F11.10 Opioid abuse, uncomplicated; F10.10 Alcohol abuse, uncomplicated; F13.10 Sedative, hypnotic or anxiolytic abuse, uncomplicated; F14.10 Cocaine abuse, uncomplicated; F12.10 Cannabis abuse, uncomplicated; F17.210 Nicotine dependence, cigarettes, uncomplicated; F33.9 Major depressive disorder, recurrent, unspecified; F43.10 Post-traumatic stress disorder, unspecified
CPT/HCPCS: 73130-TC-LT-FY; 99281-25

== ENCOUNTER 2018-11-13 11:16 | Inpatient (IN) | payer OTHER ==
[2018-11-13 14:42] VITALS: BMI 21.7
[2018-11-13] MEDS ORDERED: ONDANSETRON *ODT* 4 MG TABLET SL PRN (15:43)
[2018-11-13] MEDS ORDERED: MAGNESIUM CITRATE 300 ML BOTTLE PO PRN (15:43)
[2018-11-13] MEDS ORDERED: IBUPROFEN 400 MG TABLET (FP) PO PRN (15:43)
[2018-11-13] MEDS ORDERED: traZODone HCL 100 MG TABLET (FP) PO PRN (15:43)
[2018-11-13] MEDS ORDERED: METHOCARBAMOL 500 MG TABLET PO PRN (15:43)
[2018-11-13] MEDS ORDERED: MENTHOL/PHENOL 1 EACH UD MM PRN (15:43)
[2018-11-13] MEDS ORDERED: MAG HYDROX/AL HYDROX/SIMETH 30 ML UNIT-DOSE CUP PO PRN (15:43)
[2018-11-13] MEDS ORDERED: ACETAMINOPHEN 325 MG TABLET (FP) PO PRN ×2 (15:43)
[2018-11-13] MEDS ORDERED: BISMUTH SUBSALICYLATE 524 MG/30 ML UD PO PRN (15:43)
--- NOTE | 2018-11-13 15:43 | HP ---
CIWA Score Nausea/Vomitin Muscle Tremors: 2 Anxiety: 2 Agitation: 1-Slight > Activity Paroxysmal Sweats: 1-Minimal Palms Moist Orientation: 0-Oriented Tacttile Disturbances: 0-None Auditory Disturbances: 1-Very Mild Visual Disturbances: 1-Very Mild Sensitivity Headache: 2-Mild CIWA-Ar Total Score: 12 - Admission Criteria OASAS Guidelines: Admission for Medically Managed Detox: Requires at least one of the followin. CIWA greater than 12 2. Seizures within the past 24 hours 3. Delirium tremens within the past 24 hours 4. Hallucinations within the past 24 hours 5. Acute intervention needed for co occurring medical disorder 6. Acute intervention needed for co occurring psychiatric disorder 7. Severe withdrawal that cannot be handled at a lower level of care (continued vomiting, continued diarrhea, abnormal vital signs) requiring intravenous medication and/or fluids 8. Admission ROS S - HPI Chief Complaint: Withdrawal symptoms Allergies/Adverse Reactions: Allergies Allergy/AdvReac Type Severity Reaction Status Date / Time No Known Allergies Allergy Verified 11/13/18 14:24 History of Present Illness: 53 y.o. man with an extensive history of alcohol and benzodiazepine dependence is here seeking detox. He last completed detox in 06/2018 and rehab in 08/2018. Longest period of sobriety has been 2.5 years. Exam Limitations: No Limitations - Ebola screening Have you traveled outside of the country in the last 21 days: No (N) Have you had contact with anyone from an Ebola affected area: No Do you have a fever: No - Review of Systems Constitutional: Chills, Night Sweats, Changes in sleep, Weight Stable EENT: reports: No Symptoms Reported Respiratory: reports: No Symptoms reported Cardiac: reports: No Symptoms Reported GI: reports: Diarrhea, Nausea, Vomiting : reports: No Symptoms Reported Musculoskeletal: reports: No Symptoms Reported Integumentary: reports: No Symptoms Reported Neuro: reports: Headache, Tremors Endocrine: reports: No Symptoms Reported Hematology: reports: No Symptoms Reported Psychiatric: reports: Orientated x3, Depressed Other Systems: Reviewed and Negative Patient History - Patient Medical History Hx Anemia: No Hx Asthma: No Hx Chronic Obstructive Pulmonary Disease (COPD): No Hx Cancer: No Hx Cardiac Disorders: No Hx Congestive Heart Failure: No Hx Hypertension: No Hx Hypercholesterolemia: No Hx Pacemaker: No HX Cerebrovascular Accident: No Hx Seizures: No Hx Dementia: No Hx Diabetes: No Hx Gastrointestinal Disorders: No Hx Liver Disease: No Hx Genitourinary Disorders: No Hx Sexually Transmitted Disorders: No Hx Renal Disease (ESRD): No Hx Thyroid Disease: No Hx Human Immunodeficiency Virus (HIV): No Hx Hepatitis C: No Hx Depression: Yes Hx Suicide Attempt: No Hx Bipolar Disorder: No Hx Schizophrenia: No - Patient Surgical History Past Surgical History: No Hx Neurologic Surgery: No Hx Cataract Extraction: No Hx Cardiac Surgery: No Hx Lung Surgery: No Hx Breast Surgery: No Hx Breast Biopsy: No Hx Abdominal Surgery: No Hx Appendectomy: No Hx Cholecystectomy: No Hx Genitourinary Surgery: No Hx Section: No Hx Orthopedic Surgery: No Anesthesia Reaction: No - PPD History Previous Implant?: Yes Documented Results: Negative w/proof Implanted On Prior [facility] Admission?: Yes Date: 06/22/18 Results: 0 mm PPD to be Administered?: No - Reproductive History Patient is a Female of Child Bearing Age (11 -55 yrs old): No - Smoking Cessation Smoking history: Current some day smoker Have you smoked in the past 12 months: Yes Aproximately how many cigarettes per day: 3 Cigars Per Day: 10 Hx Chewing Tobacco Use: No Initiated information on smoking cessation: Yes 'Breaking Loose' booklet given: 11/13/18 - Substance & Tx. History Hx Alcohol Use: Yes Hx Substance Use: Yes Substance Use Type: Alcohol, Tranquilizers Hx Substance Use Treatment: Yes (Detox: 06/2018 Rehab: 08/2018) - Substances abused Alcohol Substance route: Oral Frequency: Daily Amount used: 6-7 24 oz beers Age of first use: 13 Date of last use: 11/12/18 Benzodiazepine (Klonopin) Substance route: Oral Frequency: 3-6 times per week Amount used: 5mg tab daliy Age of first use: 46 Date of last use: 11/10/18 Non-Rx Methadone Substance route: Oral Frequency: 1-3 times last 30 days Amount used: 50mg Age of first use: 52 Date of last use: 10/21/18 Family Disease History - Family Disease History Family Disease History: Other: Father (d.54 lung CA , etoh abuse), Mother ( DEPRESSION , d. 67 lupus ), Brother (2 , A & W ) Admission Physical Exam BHS - Vital Signs Vital Signs: Vital Signs - 24 hr 11/13/18 14:11 Temperature 99.7 F H Pulse Rate 88 Respiratory 16 Rate Blood Pressure 134/84 - Physical General Appearance: Yes: Anxious HEENTM: Yes: Hearing grossly Normal, Normocephalic, Normal Voice Respiratory: Yes: Chest Non-Tender, Lungs Clear, Normal Breath Sounds, No Respiratory Distress, No Accessory Muscle Use Neck: Yes: No masses,lesions,Nodules Breast: Yes: Within Normal Limits, Axillae without masses, Breasts Symetrical, No Discharge, No masses Cardiology: Yes: Regular Rhythm, Regular Rate Abdominal: Yes: Normal Bowel Sounds, Non Tender, Flat Genitourinary: Yes: Within Normal Limits Back: Yes: Normal Inspection Musculoskeletal: Yes: full range of Motion, Gait Steady, Pelvis Stable Extremities: Yes: Normal Capillary Refill, Normal Inspection, Non-Tender Neurological: Yes: Fully Oriented, Alert, Normal Mood/Affect, Normal Response Integumentary: Yes: Normal Color, Dry, Warm - Diagnostic (1) Alcohol dependence with uncomplicated withdrawal Current Visit: Yes Status: Chronic (2) Nicotine dependence Current Visit: Yes Status: Chronic Qualifiers: Nicotine product type: cigarettes Substance use status: uncomplicated Qualified Code(s): F17.210 - Nicotine dependence, cigarettes, uncomplicated (3) Sedative hypnotic or anxiolytic dependence Current Visit: Yes Status: Chronic Cleared for Admission S - Detox or Rehab [facility] Level of Care: Medically Managed (Ativan regimen) Breathalyzer - Breathalyzer Breathalyzer: 0 Urine Drug Screen - Test Device Lot number: [id number] Expiration date: 08/01/20 - Control Is test valid?: Yes - Results Drug screen NEGATIVE: Yes Inpatient Rehab Admission - Rehab Decision to Admit Inpatient rehab admission?: No
[2018-11-13] MEDS: hydrOXYzine PAMOATE 25 MG CAPSULE (FP) PO PRN (17:45)
[2018-11-13] MEDS: GABAPENTIN 400 MG CAPSULE (FP) PO SCH ×2 (17:45→22:36)
[2018-11-13] MEDS: LORazepam 1 MG TABLET PO PRN (17:45)
[2018-11-13] MEDS: THIAMINE HCL 100 MG TABLET (FP) PO SCH (22:36)
[2018-11-13] MEDS: MELATONIN 5 MG TABLETS PO PRN (22:36)
[2018-11-13] MEDS: LORazepam 2 MG TABLET PO SCH (22:38)
[2018-11-14] MEDS: GABAPENTIN 400 MG CAPSULE (FP) PO SCH ×3 (05:40→22:19)
[2018-11-14] MEDS: LORazepam 2 MG TABLET PO SCH ×3 (05:40→17:17)
[2018-11-14 10:04] LABS: ALBUMIN 3.6 g/dl (3.4-5.0); BILIRUBIN,TOTAL 1.1 mg/dL (0.2-1); BLOOD UREA NITROGEN 11.8 mg/dL (7-18); CALCIUM 9.1 mg/dL (8.5-10.1); CREATININE 0.9 mg/dL (0.55-1.3); POTASSIUM 4.6 mmol/L (3.5-5.1); TOT PROT 7.3 g/dl (6.4-8.2)
[2018-11-14 10:15] LABS: HEMATOCRIT 44.8 % (35.4-49); MCH 31.5 pg (25.7-33.7); MCHC 33.4 g/dl (32.0-35.9); MEAN CELL VOLUME 94.3 fl (80-96); MEAN PLT VOLUME 8.4 fl (7.5-11.1); RBC 4.75 M/mm3 (4.00-5.60); WHITE BLOOD COUNT 5.9 K/mm3 (4.0-10.0)
[2018-11-14] MEDS: NICOTINE 14 MG/24 HOURS TOPICAL PATCH TD SCH (10:18)
[2018-11-14] MEDS: PRENATAL VITAMINS W/ FOLIC ACID TABLET (FP) PO SCH (10:18)
[2018-11-14 10:24] LABS: PLATELET COUNT 237 K/MM3 (134-434)
--- NOTE | 2018-11-14 10:51 | PN ---
S CIWA - CIWA Score Nausea/Vomitin-No Nausea/No Vomiting Muscle Tremors: 2 Anxiety: 2 Agitation: 3 Paroxysmal Sweats: 3 Orientation: 0-Oriented Tacttile Disturbances: 0-None Auditory Disturbances: 0-None Visual Disturbances: 0-None Headache: 0-None Present CIWA-Ar Total Score: 10 BHS Progress Note (SOAP) Subjective: sweats anxiety body aches interrupted sleep shakes Objective: 11/14/18 10:50 Vital Signs Temperature 98.2 F 11/14/18 09:36 Pulse Rate 94 H 11/14/18 09:36 Respiratory Rate 18 11/14/18 09:36 Blood Pressure 118/66 11/14/18 09:36 O2 Sat by Pulse Oximetry (%) Laboratory Tests 11/14/18 11/14/18 11/14/18 07:00 07:00 07:00 WBC 5.9 RBC 4.75 Hgb 15.0 Hct 44.8 MCV 94.3 MCH 31.5 MCHC 33.4 RDW 15.0 Plt Count 237 MPV 8.4 Sodium 137 Potassium 4.6 Chloride 103 Carbon Dioxide 32 Anion Gap 3 L BUN 11.8 Creatinine 0.9 Est GFR (CKD-EPI)AfAm 111.05 Est GFR (CKD-EPI)NonAf 95.81 Random Glucose 111 H Calcium 9.1 Total Bilirubin 1.1 H AST 14 L ALT 16 Alkaline Phosphatase 78 Total Protein 7.3 Albumin 3.6 RPR Titer Nonreactive labs noted aaox3 ambulating no acute distress Assessment: 11/14/18 10:50 withdrawal sx Plan: continue detox increase fluids
--- NOTE | 2018-11-14 11:48 | EKG ---
Test Reason : Blood Pressure : / mmHG Vent. Rate : 085 BPM Atrial Rate : 085 BPM P-R Int : 144 ms QRS Dur : 102 ms QT Int : 378 ms P-R-T Axes : 063 072 053 degrees QTc Int : 449 ms NORMAL SINUS RHYTHM NORMAL ECG NO PREVIOUS ECGS AVAILABLE Confirmed by MATHEW TORRES, SANDRA ([id number]) on 11/14/2018 11:48:18 AM Referred By: Confirmed By:SANDRA CARMONA MD
[2018-11-14] MEDS: MAGNESIUM HYDROX 2400MG/30ML ORAL SUSPENSION 30 ML CUP PO PRN (12:08)
[2018-11-14] MEDS: LORazepam 1 MG TABLET PO PRN (12:28)
[2018-11-14] MEDS ORDERED: POLYETHYLENE GLYCOL 3350 119 GM BTL PO ONE (14:00)
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
[2018-11-14] MEDS: hydrOXYzine PAMOATE 25 MG CAPSULE (FP) PO PRN (15:07)
[2018-11-14] MEDS: NICOTINE POLACRILEX 2 MG GUM BUC PRN (18:17)
[2018-11-14] MEDS: LURASIDONE HCL 40 MG TABLET PO SCH (19:48)
[2018-11-14] MEDS: LORazepam 1 MG TABLET PO SCH (22:19)
[2018-11-14] MEDS: POLYETHYLENE GLYCOL 3350 119 GM BTL PO SCH (22:19)
[2018-11-14] MEDS: traZODone HCL 100 MG TABLET (FP) PO SCH (22:19)
[2018-11-14] MEDS: MELATONIN 5 MG TABLETS PO PRN (22:20)
[2018-11-14] MEDS: THIAMINE HCL 100 MG TABLET (FP) PO SCH (22:20)
[2018-11-15] MEDS: GABAPENTIN 400 MG CAPSULE (FP) PO SCH ×3 (05:22→22:34)
[2018-11-15] MEDS: LORazepam 1 MG TABLET PO SCH ×3 (05:22→17:23)
[2018-11-15] MEDS: NICOTINE 14 MG/24 HOURS TOPICAL PATCH TD SCH (10:27)
[2018-11-15] MEDS: PRENATAL VITAMINS W/ FOLIC ACID TABLET (FP) PO SCH (10:28)
[2018-11-15] MEDS: MAGNESIUM HYDROX 2400MG/30ML ORAL SUSPENSION 30 ML CUP PO PRN (10:29)
[2018-11-15] MEDS: POLYETHYLENE GLYCOL 3350 119 GM BTL PO SCH ×2 (10:31→22:34)
[2018-11-15] MEDS: NICOTINE POLACRILEX 2 MG GUM BUC PRN ×2 (10:35→16:13)
--- NOTE | 2018-11-15 11:42 | PN ---
S CIWA - CIWA Score Nausea/Vomitin-Mild Nausea/No Vomiting Muscle Tremors: 1-None Visible, but [place] Anxiety: 2 Agitation: 1-Slight > Activity Paroxysmal Sweats: 1-Minimal Palms Moist Orientation: 0-Oriented Tacttile Disturbances: 0-None Auditory Disturbances: 0-None Visual Disturbances: 0-None Headache: 0-None Present CIWA-Ar Total Score: 6 BHS Progress Note (SOAP) Subjective: interrupted sleep, sweats, anxiety Objective: Vital Signs Temperature 97.3 F L 11/15/18 09:39 Pulse Rate 108 H 11/15/18 09:39 Respiratory Rate 18 11/15/18 09:39 Blood Pressure 119/83 11/15/18 09:39 O2 Sat by Pulse Oximetry (%) Laboratory Tests 11/14/18 11/14/18 11/14/18 07:00 07:00 07:00 WBC 5.9 RBC 4.75 Hgb 15.0 Hct 44.8 MCV 94.3 MCH 31.5 MCHC 33.4 RDW 15.0 Plt Count 237 MPV 8.4 Sodium 137 Potassium 4.6 Chloride 103 Carbon Dioxide 32 Anion Gap 3 L BUN 11.8 Creatinine 0.9 Est GFR (CKD-EPI)AfAm 111.05 Est GFR (CKD-EPI)NonAf 95.81 Random Glucose 111 H Calcium 9.1 Total Bilirubin 1.1 H AST 14 L ALT 16 Alkaline Phosphatase 78 Total Protein 7.3 Albumin 3.6 RPR Titer Nonreactive 11/15/18 11:35 pt aox3 in nad ambulating well 11/15/18 11:35 Assessment: 11/15/18 11:35 withdrawal sx;s 11/15/18 11:43 anxiety Plan: cont. detox increase fluids vistaril prn
[2018-11-15] MEDS: hydrOXYzine PAMOATE 25 MG CAPSULE (FP) PO PRN (15:06)
[2018-11-15] MEDS: LURASIDONE HCL 40 MG TABLET PO SCH (17:23)
[2018-11-15] MEDS: LORazepam 0.5 MG TABLET PO SCH (22:33)
[2018-11-15] MEDS: THIAMINE HCL 100 MG TABLET (FP) PO SCH (22:33)
[2018-11-15] MEDS: traZODone HCL 100 MG TABLET (FP) PO SCH (22:34)
[2018-11-15] MEDS ORDERED: LORazepam 0.5 MG TABLET PO PRN (23:00)
[2018-11-16] MEDS: GABAPENTIN 400 MG CAPSULE (FP) PO SCH ×3 (06:06→22:23)
[2018-11-16] MEDS: LORazepam 0.5 MG TABLET PO SCH ×4 (06:06→22:23)
[2018-11-16] MEDS: NICOTINE POLACRILEX 2 MG GUM BUC PRN ×4 (07:19→17:21)
[2018-11-16] MEDS: MAGNESIUM HYDROX 2400MG/30ML ORAL SUSPENSION 30 ML CUP PO PRN (07:19)
[2018-11-16] MEDS: PRENATAL VITAMINS W/ FOLIC ACID TABLET (FP) PO SCH (10:16)
[2018-11-16] MEDS: NICOTINE 14 MG/24 HOURS TOPICAL PATCH TD SCH (10:16)
[2018-11-16] MEDS: POLYETHYLENE GLYCOL 3350 119 GM BTL PO SCH ×2 (10:16→22:23)
[2018-11-16] MEDS: hydrOXYzine PAMOATE 25 MG CAPSULE (FP) PO PRN (14:13)
--- NOTE | 2018-11-16 14:27 | PN ---
[facility] Progress Note Note: Psychiatry Attending's note (follow-up) : Called by RN Melania Aviles for prescriptions. Patient is scheduled for discharge tomorrow 11/17/18. Mr Cooper is going to [facility] for rehabilitative care. Patient needs a month supply of his currently prescribed medications. Course of detoxification : benign. Medications are well tolerated. Patient is well. Chart reviewed. Medications revisited. consulting services manager Carie's note : read and appreciated. Informed consent is secured. Intervention : Trazodone 100 mg po hs Latuda 40 mg po daily Wellbutrin XL 300 mg po daily Scripts for 30-day supply are issued. Sent electronically, by this va underwriter, to [facility].
--- NOTE | 2018-11-16 15:08 | PN ---
S CIWA - CIWA Score Nausea/Vomitin Muscle Tremors: 3 Anxiety: 3 Agitation: 4-Moderately Restless Paroxysmal Sweats: No Perspiration Orientation: 0-Oriented Tacttile Disturbances: 0-None Auditory Disturbances: 0-None Visual Disturbances: 0-None Headache: 0-None Present CIWA-Ar Total Score: 12 S Progress Note (SOAP) Subjective: Verbalizes feeling good sweats Objective: 11/16/18 15:08 A & O x 3 Walking around unit in no acute distress anxious Vital Signs Temperature 97.6 F 11/16/18 14:58 Pulse Rate 88 11/16/18 14:58 Respiratory Rate 18 11/16/18 14:58 Blood Pressure 121/77 11/16/18 14:58 O2 Sat by Pulse Oximetry (%) Laboratory Last Values WBC 5.9 K/mm3 (4.0-10.0) 11/14/18 07:00 RBC 4.75 M/mm3 (4.00-5.60) 11/14/18 07:00 Hgb 15.0 GM/dL (11.7-16.9) 11/14/18 07:00 Hct 44.8 % (35.4-49) 11/14/18 07:00 MCV 94.3 fl (80-96) 11/14/18 07:00 MCH 31.5 pg (25.7-33.7) 11/14/18 07:00 MCHC 33.4 g/dl (32.0-35.9) 11/14/18 07:00 RDW 15.0 % (11.9-15.9) 11/14/18 07:00 Plt Count 237 K/MM3 (134-434) 11/14/18 07:00 MPV 8.4 fl (7.5-11.1) 11/14/18 07:00 Sodium 137 mmol/L (136-145) 11/14/18 07:00 Potassium 4.6 mmol/L (3.5-5.1) 11/14/18 07:00 Chloride 103 mmol/L (98-107) 11/14/18 07:00 Carbon Dioxide 32 mmol/L (21-32) 11/14/18 07:00 Anion Gap 3 MMOL/L (8-16) L 11/14/18 07:00 BUN 11.8 mg/dL (7-18) 11/14/18 07:00 Creatinine 0.9 mg/dL (0.55-1.3) 11/14/18 07:00 Est GFR (CKD-EPI)AfAm 111.05 11/14/18 07:00 Est GFR (CKD-EPI)NonAf 95.81 11/14/18 07:00 Random Glucose 111 mg/dL (74-106) H 11/14/18 07:00 Calcium 9.1 mg/dL (8.5-10.1) 11/14/18 07:00 Total Bilirubin 1.1 mg/dL (0.2-1) H 11/14/18 07:00 AST 14 U/L (15-37) L 11/14/18 07:00 ALT 16 U/L (13-61) 11/14/18 07:00 Alkaline Phosphatase 78 U/L (45-117) 11/14/18 07:00 Total Protein 7.3 g/dl (6.4-8.2) 11/14/18 07:00 Albumin 3.6 g/dl (3.4-5.0) 11/14/18 07:00 RPR Titer Nonreactive (NONREACTIVE) 11/14/18 07:00 Assessment: 11/16/18 15:10 withdrawal sx Elevated blood sugar Plan: continue detox Increase water hydration
[2018-11-16] MEDS: LURASIDONE HCL 40 MG TABLET PO SCH (17:20)
[2018-11-16] MEDS: THIAMINE HCL 100 MG TABLET (FP) PO SCH (22:25)
[2018-11-16] MEDS: traZODone HCL 100 MG TABLET (FP) PO SCH (22:25)
[2018-11-17] MEDS: GABAPENTIN 400 MG CAPSULE (FP) PO SCH ×3 (05:57→22:22)
[2018-11-17] MEDS: NICOTINE 14 MG/24 HOURS TOPICAL PATCH TD SCH (10:28)
[2018-11-17] MEDS: PRENATAL VITAMINS W/ FOLIC ACID TABLET (FP) PO SCH (10:28)
[2018-11-17] MEDS: POLYETHYLENE GLYCOL 3350 119 GM BTL PO SCH ×2 (10:29→22:22)
[2018-11-17] MEDS: NICOTINE POLACRILEX 2 MG GUM BUC PRN ×3 (10:29→17:39)
[2018-11-17] MEDS: LORazepam 0.5 MG TABLET PO PRN (13:08)
--- NOTE | 2018-11-17 13:46 | PN ---
S CIWA - CIWA Score Nausea/Vomitin-No Nausea/No Vomiting Muscle Tremors: 1-None Visible, but [place] Anxiety: 1-Mildly Anxious Agitation: 1-Slight > Activity Paroxysmal Sweats: 1-Minimal Palms Moist Orientation: 0-Oriented Tacttile Disturbances: 0-None Auditory Disturbances: 0-None Visual Disturbances: 0-None Headache: 0-None Present CIWA-Ar Total Score: 4 BHS Progress Note (SOAP) Subjective: sweats anxiety Objective: 11/17/18 13:45 Vital Signs Temperature 98.8 F 11/17/18 09:26 Pulse Rate 96 H 11/17/18 09:26 Respiratory Rate 16 11/17/18 09:26 Blood Pressure 127/75 11/17/18 09:26 O2 Sat by Pulse Oximetry (%) aaox3 ambulating no acute distress Assessment: 11/17/18 13:46 mild withdrawal sx Plan: continue detox increase fluids ativan 0.5mg prn d/c in am
[2018-11-17] MEDS: MAGNESIUM HYDROX 2400MG/30ML ORAL SUSPENSION 30 ML CUP PO PRN (15:20)
[2018-11-17] MEDS: LURASIDONE HCL 40 MG TABLET PO SCH (17:38)
[2018-11-17] MEDS: traZODone HCL 100 MG TABLET (FP) PO SCH (22:22)
[2018-11-17] MEDS: THIAMINE HCL 100 MG TABLET (FP) PO SCH (22:22)
[2018-11-17] MEDS: MELATONIN 5 MG TABLETS PO PRN (22:23)
[2018-11-18] MEDS: GABAPENTIN 400 MG CAPSULE (FP) PO SCH ×3 (05:26→21:04)
[2018-11-18] MEDS: LORazepam 0.5 MG TABLET PO PRN (05:26)
[2018-11-18] MEDS: NICOTINE POLACRILEX 2 MG GUM BUC PRN ×2 (07:04→10:43)
--- NOTE | 2018-11-18 08:40 | DS ---
[facility] Detox Discharge Summary Admission Date: 11/13/18 Discharge Date: 11/18/18 - History Present History: Alcohol Dependence, Cannabis Dependence, Cocaine Dependence, Sedative Dependence - Physical Exam Results Vital Signs: Vital Signs Temperature 97.9 F 11/18/18 06:09 Pulse Rate 61 11/18/18 06:09 Respiratory Rate 18 11/18/18 06:09 Blood Pressure 109/58 L 11/18/18 06:09 O2 Sat by Pulse Oximetry (%) - Treatment Hospital Course: Detox Protocol Followed, Detoxed Safely, Responded well, Discharged Condition Good, Rehab Referral Accepted - Medication Discharge Medications: Ambulatory Orders Trazodone HCl 150 mg PO HS #30 tablet 07/31/18 Bupropion HCl [Wellbutrin Xl -] 150 mg PO DAILY #30 tab.sr.24h 08/25/18 Gabapentin [Neurontin -] 400 mg PO Q8H 11/13/18 Lurasidone HCl [Latuda -] 40 mg PO DAILY@1800 11/14/18 - Diagnosis (1) Alcohol dependence with uncomplicated withdrawal Current Visit: Yes Status: Chronic (2) Anxiety disorder Current Visit: Yes Status: Chronic (3) Depressive disorder Current Visit: Yes Status: Chronic (4) Nicotine dependence Current Visit: Yes Status: Chronic Qualifiers: Nicotine product type: cigarettes Substance use status: uncomplicated Qualified Code(s): F17.210 - Nicotine dependence, cigarettes, uncomplicated (5) Sedative hypnotic or anxiolytic dependence Current Visit: Yes Status: Chronic (6) Major Depressive Disorder,Recurrent,Severe w/ P.F Current Visit: No Status: Active (7) Posttraumatic stress disorder Current Visit: No Status: Active (8) Cannabis dependence Current Visit: Yes Status: Chronic (9) Cocaine dependence Current Visit: Yes Status: Chronic Qualifiers: Substance use status: uncomplicated Qualified Code(s): F14.20 - Cocaine dependence, uncomplicated (10) Substance induced mood disorder Current Visit: No Status: Chronic - AMA Did Patient Leave Against Medical Advice: No (referred to [facility])
[2018-11-18] MEDS: NICOTINE 14 MG/24 HOURS TOPICAL PATCH TD SCH (10:41)
[2018-11-18] MEDS: PRENATAL VITAMINS W/ FOLIC ACID TABLET (FP) PO SCH (10:41)
[2018-11-18] MEDS: POLYETHYLENE GLYCOL 3350 119 GM BTL PO SCH ×2 (10:42→21:05)
--- NOTE | 2018-11-18 14:37 | HP ---
[facility] Rehab Assess/Revision - Admission History Admitted to Rehab from: [facility] [place] - Vital signs Vital Signs: Vital Signs Period Temp Pulse Resp BP Sys/Mariscal Pulse Ox Last 24 Hr 97.9 F-98.8 F 61-85 16-18 100-134/58-80 - Findings Detox History & Physical reviewed: Yes Concur with findings: Yes Inpatient Rehab Admission - Rehab Decision to Admit Inpatient rehab admission?: Yes - Initial Determination Are CD services needed?: Yes Free of communicable disease: Yes Not in need of hospitalization: Yes - Rehab Admission Criteria Previous failed treatment: Yes Poor recovery environment: Yes Comorbidities: Yes Lacks judgement: Yes Patient is meeting Inpatient Rehab admission criteria:: Yes
[2018-11-18] MEDS: LURASIDONE HCL 40 MG TABLET PO SCH (17:46)
[2018-11-18] MEDS: THIAMINE HCL 100 MG TABLET (FP) PO SCH (21:04)
[2018-11-18] MEDS: traZODone HCL 100 MG TABLET (FP) PO SCH (21:04)
[2018-11-19] MEDS: GABAPENTIN 400 MG CAPSULE (FP) PO SCH ×3 (06:18→21:05)
[2018-11-19] MEDS: NICOTINE POLACRILEX 2 MG GUM BUC PRN ×3 (06:42→14:05)
[2018-11-19] MEDS: NICOTINE 14 MG/24 HOURS TOPICAL PATCH TD SCH (09:48)
[2018-11-19] MEDS: PRENATAL VITAMINS W/ FOLIC ACID TABLET (FP) PO SCH (09:48)
[2018-11-19] MEDS: POLYETHYLENE GLYCOL 3350 119 GM BTL PO SCH ×2 (11:01→21:05)
[2018-11-19] MEDS: LURASIDONE HCL 40 MG TABLET PO SCH (17:32)
[2018-11-19] MEDS: MELATONIN 5 MG TABLETS PO PRN (21:05)
[2018-11-19] MEDS: traZODone HCL 100 MG TABLET (FP) PO SCH (21:05)
[2018-11-19] MEDS: THIAMINE HCL 100 MG TABLET (FP) PO SCH (22:26)
[2018-11-20] MEDS: GABAPENTIN 400 MG CAPSULE (FP) PO SCH ×3 (06:41→21:03)
[2018-11-20] MEDS: MAGNESIUM HYDROX 2400MG/30ML ORAL SUSPENSION 30 ML CUP PO PRN (06:41)
[2018-11-20] MEDS: NICOTINE POLACRILEX 2 MG GUM BUC PRN ×4 (06:41→21:04)
[2018-11-20] MEDS: PRENATAL VITAMINS W/ FOLIC ACID TABLET (FP) PO SCH (09:47)
[2018-11-20] MEDS: NICOTINE 14 MG/24 HOURS TOPICAL PATCH TD SCH (09:47)
[2018-11-20] MEDS: POLYETHYLENE GLYCOL 3350 119 GM BTL PO SCH ×2 (09:48→21:03)
[2018-11-20] MEDS: LURASIDONE HCL 40 MG TABLET PO SCH (17:53)
[2018-11-20] MEDS: THIAMINE HCL 100 MG TABLET (FP) PO SCH (21:03)
[2018-11-20] MEDS: traZODone HCL 100 MG TABLET (FP) PO SCH (21:03)
[2018-11-21] MEDS: GABAPENTIN 400 MG CAPSULE (FP) PO SCH ×3 (06:08→21:08)
[2018-11-21] MEDS: NICOTINE POLACRILEX 2 MG GUM BUC PRN ×3 (06:09→14:12)
[2018-11-21] MEDS: PRENATAL VITAMINS W/ FOLIC ACID TABLET (FP) PO SCH (09:48)
[2018-11-21] MEDS: NICOTINE 14 MG/24 HOURS TOPICAL PATCH TD SCH (09:48)
[2018-11-21] MEDS: POLYETHYLENE GLYCOL 3350 119 GM BTL PO SCH ×2 (09:50→21:10)
[2018-11-21] MEDS: MAGNESIUM HYDROX 2400MG/30ML ORAL SUSPENSION 30 ML CUP PO PRN (14:11)
[2018-11-21] MEDS: LURASIDONE HCL 40 MG TABLET PO SCH (17:44)
[2018-11-21] MEDS: traZODone HCL 100 MG TABLET (FP) PO SCH (21:08)
[2018-11-21] MEDS: THIAMINE HCL 100 MG TABLET (FP) PO SCH (21:09)
[2018-11-22] MEDS: GABAPENTIN 400 MG CAPSULE (FP) PO SCH ×3 (05:59→21:10)
[2018-11-22] MEDS: NICOTINE POLACRILEX 2 MG GUM BUC PRN ×3 (06:00→14:16)
[2018-11-22] MEDS: PRENATAL VITAMINS W/ FOLIC ACID TABLET (FP) PO SCH (10:01)
[2018-11-22] MEDS: NICOTINE 14 MG/24 HOURS TOPICAL PATCH TD SCH (10:01)
[2018-11-22] MEDS: POLYETHYLENE GLYCOL 3350 119 GM BTL PO SCH ×2 (10:02→21:11)
[2018-11-22] MEDS: LURASIDONE HCL 40 MG TABLET PO SCH (17:41)
[2018-11-22] MEDS: traZODone HCL 100 MG TABLET (FP) PO SCH (21:10)
[2018-11-22] MEDS: THIAMINE HCL 100 MG TABLET (FP) PO SCH (21:10)
[2018-11-23] MEDS: NICOTINE POLACRILEX 2 MG GUM BUC PRN ×2 (06:15→09:37)
[2018-11-23] MEDS: GABAPENTIN 400 MG CAPSULE (FP) PO SCH ×3 (06:15→21:04)
[2018-11-23] MEDS: PRENATAL VITAMINS W/ FOLIC ACID TABLET (FP) PO SCH (09:37)
[2018-11-23] MEDS: POLYETHYLENE GLYCOL 3350 119 GM BTL PO SCH ×2 (09:37→21:04)
[2018-11-23] MEDS: NICOTINE 14 MG/24 HOURS TOPICAL PATCH TD SCH (09:37)
[2018-11-23] MEDS: LURASIDONE HCL 40 MG TABLET PO SCH (17:39)
[2018-11-23] MEDS: THIAMINE HCL 100 MG TABLET (FP) PO SCH (21:04)
[2018-11-23] MEDS: traZODone HCL 100 MG TABLET (FP) PO SCH (21:06)
[2018-11-24] MEDS: NICOTINE POLACRILEX 2 MG GUM BUC PRN ×4 (06:28→17:05)
[2018-11-24] MEDS: GABAPENTIN 400 MG CAPSULE (FP) PO SCH ×3 (06:28→21:04)
[2018-11-24] MEDS: POLYETHYLENE GLYCOL 3350 119 GM BTL PO SCH ×2 (10:01→21:04)
[2018-11-24] MEDS: PRENATAL VITAMINS W/ FOLIC ACID TABLET (FP) PO SCH (10:01)
[2018-11-24] MEDS: NICOTINE 14 MG/24 HOURS TOPICAL PATCH TD SCH (10:02)
[2018-11-24] MEDS: LURASIDONE HCL 40 MG TABLET PO SCH (17:06)
[2018-11-24] MEDS: THIAMINE HCL 100 MG TABLET (FP) PO SCH (21:04)
[2018-11-24] MEDS: traZODone HCL 100 MG TABLET (FP) PO SCH (21:06)
[2018-11-25] MEDS: GABAPENTIN 400 MG CAPSULE (FP) PO SCH ×3 (06:05→21:05)
[2018-11-25] MEDS: NICOTINE POLACRILEX 2 MG GUM BUC PRN ×3 (06:06→13:57)
[2018-11-25] MEDS: PRENATAL VITAMINS W/ FOLIC ACID TABLET (FP) PO SCH (09:47)
[2018-11-25] MEDS: NICOTINE 14 MG/24 HOURS TOPICAL PATCH TD SCH (09:48)
[2018-11-25] MEDS: POLYETHYLENE GLYCOL 3350 119 GM BTL PO SCH ×2 (09:51→21:06)
[2018-11-25] MEDS: LURASIDONE HCL 40 MG TABLET PO SCH (17:05)
[2018-11-25] MEDS: THIAMINE HCL 100 MG TABLET (FP) PO SCH (21:05)
[2018-11-25] MEDS: traZODone HCL 100 MG TABLET (FP) PO SCH (21:05)
[2018-11-26] MEDS: NICOTINE POLACRILEX 2 MG GUM BUC PRN ×3 (06:12→14:08)
[2018-11-26] MEDS: GABAPENTIN 400 MG CAPSULE (FP) PO SCH ×3 (06:12→21:05)
[2018-11-26] MEDS: NICOTINE 14 MG/24 HOURS TOPICAL PATCH TD SCH (09:35)
[2018-11-26] MEDS: PRENATAL VITAMINS W/ FOLIC ACID TABLET (FP) PO SCH (09:36)
[2018-11-26] MEDS: POLYETHYLENE GLYCOL 3350 119 GM BTL PO SCH ×2 (09:36→21:05)
[2018-11-26] MEDS: LURASIDONE HCL 40 MG TABLET PO SCH (17:49)
[2018-11-26] MEDS: traZODone HCL 100 MG TABLET (FP) PO SCH (21:04)
[2018-11-26] MEDS: THIAMINE HCL 100 MG TABLET (FP) PO SCH (21:05)
[2018-11-27] MEDS: GABAPENTIN 400 MG CAPSULE (FP) PO SCH ×3 (06:06→21:00)
[2018-11-27] MEDS: NICOTINE POLACRILEX 2 MG GUM BUC PRN ×5 (06:06→21:00)
[2018-11-27] MEDS: NICOTINE 14 MG/24 HOURS TOPICAL PATCH TD SCH (09:26)
[2018-11-27] MEDS: PRENATAL VITAMINS W/ FOLIC ACID TABLET (FP) PO SCH (09:26)
[2018-11-27] MEDS: POLYETHYLENE GLYCOL 3350 119 GM BTL PO SCH ×2 (09:27→21:00)
[2018-11-27] MEDS: LURASIDONE HCL 40 MG TABLET PO SCH (17:28)
[2018-11-27] MEDS: traZODone HCL 100 MG TABLET (FP) PO SCH (21:00)
[2018-11-27] MEDS: THIAMINE HCL 100 MG TABLET (FP) PO SCH (21:00)
[2018-11-28] MEDS: NICOTINE POLACRILEX 2 MG GUM BUC PRN ×3 (06:10→17:37)
[2018-11-28] MEDS: GABAPENTIN 400 MG CAPSULE (FP) PO SCH ×3 (06:10→21:03)
[2018-11-28] MEDS: PRENATAL VITAMINS W/ FOLIC ACID TABLET (FP) PO SCH (09:36)
[2018-11-28] MEDS: POLYETHYLENE GLYCOL 3350 119 GM BTL PO SCH ×2 (09:36→21:04)
[2018-11-28] MEDS: NICOTINE 14 MG/24 HOURS TOPICAL PATCH TD SCH (09:36)
[2018-11-28] MEDS: LURASIDONE HCL 40 MG TABLET PO SCH (17:36)
[2018-11-28] MEDS: THIAMINE HCL 100 MG TABLET (FP) PO SCH (21:03)
[2018-11-28] MEDS: traZODone HCL 100 MG TABLET (FP) PO SCH (21:03)
[2018-11-29] MEDS: GABAPENTIN 400 MG CAPSULE (FP) PO SCH ×3 (05:56→21:07)
[2018-11-29] MEDS: NICOTINE POLACRILEX 2 MG GUM BUC PRN ×3 (05:57→14:09)
[2018-11-29] MEDS: PRENATAL VITAMINS W/ FOLIC ACID TABLET (FP) PO SCH (09:20)
[2018-11-29] MEDS: POLYETHYLENE GLYCOL 3350 119 GM BTL PO SCH ×2 (09:20→21:07)
[2018-11-29] MEDS: NICOTINE 14 MG/24 HOURS TOPICAL PATCH TD SCH (09:20)
[2018-11-29] MEDS: LURASIDONE HCL 40 MG TABLET PO SCH (17:57)
[2018-11-29] MEDS: traZODone HCL 100 MG TABLET (FP) PO SCH (21:07)
[2018-11-29] MEDS: THIAMINE HCL 100 MG TABLET (FP) PO SCH (21:07)
[2018-11-30] MEDS: GABAPENTIN 400 MG CAPSULE (FP) PO SCH ×3 (05:56→21:06)
[2018-11-30] MEDS: NICOTINE POLACRILEX 2 MG GUM BUC PRN ×4 (05:57→17:24)
[2018-11-30] MEDS: POLYETHYLENE GLYCOL 3350 119 GM BTL PO SCH ×2 (09:32→21:07)
[2018-11-30] MEDS: PRENATAL VITAMINS W/ FOLIC ACID TABLET (FP) PO SCH (09:32)
[2018-11-30] MEDS: NICOTINE 14 MG/24 HOURS TOPICAL PATCH TD SCH (09:32)
[2018-11-30] MEDS: LURASIDONE HCL 40 MG TABLET PO SCH (17:23)
[2018-11-30] MEDS: traZODone HCL 100 MG TABLET (FP) PO SCH (21:06)
[2018-11-30] MEDS: THIAMINE HCL 100 MG TABLET (FP) PO SCH (21:07)
[2018-12-01] MEDS: GABAPENTIN 400 MG CAPSULE (FP) PO SCH ×3 (06:07→21:00)
[2018-12-01] MEDS: NICOTINE POLACRILEX 2 MG GUM BUC PRN ×4 (06:07→17:30)
[2018-12-01] MEDS: PRENATAL VITAMINS W/ FOLIC ACID TABLET (FP) PO SCH (09:42)
[2018-12-01] MEDS: NICOTINE 14 MG/24 HOURS TOPICAL PATCH TD SCH (09:42)
[2018-12-01] MEDS: POLYETHYLENE GLYCOL 3350 119 GM BTL PO SCH ×2 (09:43→21:01)
[2018-12-01] MEDS: LURASIDONE HCL 40 MG TABLET PO SCH (17:29)
[2018-12-01] MEDS: THIAMINE HCL 100 MG TABLET (FP) PO SCH (21:00)
[2018-12-01] MEDS: traZODone HCL 100 MG TABLET (FP) PO SCH (21:00)
[2018-12-02] MEDS: GABAPENTIN 400 MG CAPSULE (FP) PO SCH ×3 (06:15→21:14)
[2018-12-02] MEDS: PRENATAL VITAMINS W/ FOLIC ACID TABLET (FP) PO SCH (10:02)
[2018-12-02] MEDS: POLYETHYLENE GLYCOL 3350 119 GM BTL PO SCH ×2 (10:03→21:14)
[2018-12-02] MEDS: NICOTINE POLACRILEX 2 MG GUM BUC PRN ×2 (10:03→17:33)
[2018-12-02] MEDS: NICOTINE 14 MG/24 HOURS TOPICAL PATCH TD SCH (10:03)
[2018-12-02] MEDS: LURASIDONE HCL 40 MG TABLET PO SCH (17:32)
[2018-12-02] MEDS: traZODone HCL 100 MG TABLET (FP) PO SCH (21:14)
[2018-12-02] MEDS: THIAMINE HCL 100 MG TABLET (FP) PO SCH (21:14)
[2018-12-03] MEDS: NICOTINE POLACRILEX 2 MG GUM BUC PRN ×3 (05:59→14:05)
[2018-12-03] MEDS: GABAPENTIN 400 MG CAPSULE (FP) PO SCH ×3 (05:59→21:08)
[2018-12-03] MEDS: NICOTINE 14 MG/24 HOURS TOPICAL PATCH TD SCH (09:48)
[2018-12-03] MEDS: PRENATAL VITAMINS W/ FOLIC ACID TABLET (FP) PO SCH (09:48)
[2018-12-03] MEDS: POLYETHYLENE GLYCOL 3350 119 GM BTL PO SCH ×2 (09:48→21:09)
[2018-12-03] MEDS: LURASIDONE HCL 40 MG TABLET PO SCH (18:09)
[2018-12-03] MEDS: THIAMINE HCL 100 MG TABLET (FP) PO SCH (21:08)
[2018-12-03] MEDS: traZODone HCL 100 MG TABLET (FP) PO SCH (21:08)
[2018-12-04] MEDS: NICOTINE POLACRILEX 2 MG GUM BUC PRN ×4 (06:06→17:21)
[2018-12-04] MEDS: GABAPENTIN 400 MG CAPSULE (FP) PO SCH ×3 (06:06→21:04)
[2018-12-04] MEDS: NICOTINE 14 MG/24 HOURS TOPICAL PATCH TD SCH (09:53)
[2018-12-04] MEDS: PRENATAL VITAMINS W/ FOLIC ACID TABLET (FP) PO SCH (09:53)
[2018-12-04] MEDS: POLYETHYLENE GLYCOL 3350 119 GM BTL PO SCH ×2 (09:53→21:04)
[2018-12-04] MEDS: LURASIDONE HCL 40 MG TABLET PO SCH (17:20)
[2018-12-04] MEDS: THIAMINE HCL 100 MG TABLET (FP) PO SCH (21:04)
[2018-12-04] MEDS: traZODone HCL 100 MG TABLET (FP) PO SCH (21:04)
[2018-12-05] MEDS: GABAPENTIN 400 MG CAPSULE (FP) PO SCH ×3 (06:11→21:04)
[2018-12-05] MEDS: NICOTINE POLACRILEX 2 MG GUM BUC PRN (06:12)
[2018-12-05] MEDS: POLYETHYLENE GLYCOL 3350 119 GM BTL PO SCH ×2 (09:44→21:04)
[2018-12-05] MEDS: NICOTINE 14 MG/24 HOURS TOPICAL PATCH TD SCH (09:45)
[2018-12-05] MEDS: PRENATAL VITAMINS W/ FOLIC ACID TABLET (FP) PO SCH (09:45)
[2018-12-05] MEDS: LURASIDONE HCL 40 MG TABLET PO SCH (16:59)
[2018-12-05] MEDS: traZODone HCL 100 MG TABLET (FP) PO SCH (21:04)
[2018-12-05] MEDS: THIAMINE HCL 100 MG TABLET (FP) PO SCH (21:04)
[2018-12-06] MEDS: GABAPENTIN 400 MG CAPSULE (FP) PO SCH ×3 (06:11→21:06)
[2018-12-06] MEDS: NICOTINE POLACRILEX 2 MG GUM BUC PRN ×3 (06:12→14:36)
[2018-12-06] MEDS: POLYETHYLENE GLYCOL 3350 119 GM BTL PO SCH ×2 (09:42→21:07)
[2018-12-06] MEDS: NICOTINE 14 MG/24 HOURS TOPICAL PATCH TD SCH (09:42)
[2018-12-06] MEDS: PRENATAL VITAMINS W/ FOLIC ACID TABLET (FP) PO SCH (09:42)
[2018-12-06] MEDS: LURASIDONE HCL 40 MG TABLET PO SCH (17:41)
[2018-12-06] MEDS: THIAMINE HCL 100 MG TABLET (FP) PO SCH (21:06)
[2018-12-06] MEDS: traZODone HCL 100 MG TABLET (FP) PO SCH (21:06)
[2018-12-07] MEDS: NICOTINE POLACRILEX 2 MG GUM BUC PRN ×4 (06:18→19:06)
[2018-12-07] MEDS: GABAPENTIN 400 MG CAPSULE (FP) PO SCH ×3 (06:18→21:24)
[2018-12-07] MEDS: NICOTINE 14 MG/24 HOURS TOPICAL PATCH TD SCH (09:36)
[2018-12-07] MEDS: PRENATAL VITAMINS W/ FOLIC ACID TABLET (FP) PO SCH (09:36)
[2018-12-07] MEDS: POLYETHYLENE GLYCOL 3350 119 GM BTL PO SCH ×2 (11:03→21:24)
[2018-12-07] MEDS: LURASIDONE HCL 40 MG TABLET PO SCH (17:06)
[2018-12-07] MEDS: THIAMINE HCL 100 MG TABLET (FP) PO SCH (21:23)
[2018-12-07] MEDS: traZODone HCL 100 MG TABLET (FP) PO SCH (21:24)
[2018-12-08] MEDS: NICOTINE POLACRILEX 2 MG GUM BUC PRN ×3 (06:09→13:27)
[2018-12-08] MEDS: GABAPENTIN 400 MG CAPSULE (FP) PO SCH ×3 (06:09→21:23)
[2018-12-08] MEDS: PRENATAL VITAMINS W/ FOLIC ACID TABLET (FP) PO SCH (09:43)
[2018-12-08] MEDS: POLYETHYLENE GLYCOL 3350 119 GM BTL PO SCH ×2 (09:43→21:23)
[2018-12-08] MEDS: NICOTINE 14 MG/24 HOURS TOPICAL PATCH TD SCH (09:44)
[2018-12-08] MEDS: LURASIDONE HCL 40 MG TABLET PO SCH (17:24)
[2018-12-08] MEDS: THIAMINE HCL 100 MG TABLET (FP) PO SCH (21:23)
[2018-12-08] MEDS: traZODone HCL 100 MG TABLET (FP) PO SCH (21:23)
[2018-12-09] MEDS: GABAPENTIN 400 MG CAPSULE (FP) PO SCH ×3 (06:26→21:12)
[2018-12-09] MEDS: NICOTINE POLACRILEX 2 MG GUM BUC PRN ×4 (06:27→17:49)
--- NOTE | 2018-12-09 07:44 | PN ---
[facility] Progress Note Note: Patient is scheduled for discharge today. Scripts for 30 days supply of medications(Wellbutrin XL 300 mg/day, Gabapentin 400 mg/tid, Trazadone 100 mg/hs , Latuda 40 mg/pm) are electronically transmitted to [facility] pharmacy at [address] [place] [address]
[2018-12-09] MEDS: NICOTINE 14 MG/24 HOURS TOPICAL PATCH TD SCH (09:53)
[2018-12-09] MEDS: PRENATAL VITAMINS W/ FOLIC ACID TABLET (FP) PO SCH (09:53)
[2018-12-09] MEDS: POLYETHYLENE GLYCOL 3350 119 GM BTL PO SCH ×2 (09:53→21:12)
[2018-12-09] MEDS: LURASIDONE HCL 40 MG TABLET PO SCH (17:50)
[2018-12-09] MEDS: THIAMINE HCL 100 MG TABLET (FP) PO SCH (21:11)
[2018-12-09] MEDS: traZODone HCL 100 MG TABLET (FP) PO SCH (21:12)
[2018-12-10] MEDS: GABAPENTIN 400 MG CAPSULE (FP) PO SCH (06:20)
[2018-12-10 06:47] VITALS: BP 111/71; PULSE 70; TEMP 97.5
[2018-12-10] MEDS: PRENATAL VITAMINS W/ FOLIC ACID TABLET (FP) PO SCH (10:01)
[2018-12-10] MEDS: POLYETHYLENE GLYCOL 3350 119 GM BTL PO SCH (10:02)
[2018-12-10] MEDS: NICOTINE POLACRILEX 2 MG GUM BUC PRN (10:02)
[2018-12-10] MEDS: NICOTINE 14 MG/24 HOURS TOPICAL PATCH TD SCH (10:02)
--- NOTE | 2018-12-10 10:38 | PN ---
[facility] Progress Note (SOAP) Subjective: PT PARTICIPATED IN [facility]IT ACTIVITIES, COMPLETED REHAB AND DISCHARGED TODAY. PT MET WITH HIS COUNSELOR AND HAS BEEN REFERRED TO [facility] FOR CD AFTERCARE. PT REPORTS HE HAS PR[place] C[place] [address] [place] [address] FOR MEDICAL MANAGEMENT. PT IS ALERT O X 3. DENIES S/H/I. Objective: 12/10/18 10:35 Vital Signs - 24 hr 12/10/18 12/10/18 12/10/18 00:30 03:30 06:46 Temperature 97.5 F L Pulse Rate 70 Respiratory 18 18 18 Rate Blood Pressure 111/71 Laboratory Tests 11/14/18 11/14/18 11/14/18 07:00 07:00 07:00 WBC 5.9 RBC 4.75 Hgb 15.0 Hct 44.8 MCV 94.3 MCH 31.5 MCHC 33.4 RDW 15.0 Plt Count 237 MPV 8.4 Sodium 137 Potassium 4.6 Chloride 103 Carbon Dioxide 32 Anion Gap 3 L BUN 11.8 Creatinine 0.9 Est GFR (CKD-EPI)AfAm 111.05 Est GFR (CKD-EPI)NonAf 95.81 Random Glucose 111 H Calcium 9.1 Total Bilirubin 1.1 H AST 14 L ALT 16 Alkaline Phosphatase 78 Total Protein 7.3 Albumin 3.6 RPR Titer Nonreactive Home Medications Medication Instructions Recorded Bupropion HCl [Wellbutrin Xl -] 150 mg PO DAILY #30 tab.sr.24h 08/25/18 Gabapentin [Neurontin -] 400 mg PO Q8H 11/13/18 Bupropion HCl [Wellbutrin Xl -] 300 mg PO DAILY #30 tab.sr.24h 12/09/18 Gabapentin [Neurontin -] 400 mg PO TID #90 capsule 12/09/18 Lurasidone HCl [Latuda -] 40 mg PO DAILY@1800 #30 tablet 12/09/18 traZODone HCL [Desyrel -] 100 mg PO HS #30 tablet 12/09/18 Assessment: 12/10/18 10:35 NAD MEDICALLY STABLE 12/10/18 10:40 [facility] Inpatient Services Medical - Diagnosis (1) Alcohol dependence Qualifiers: Substance use status: uncomplicated Qualified Code(s): F10.20 - Alcohol dependence, uncomplicated Current Visit: Yes Status: Chronic (2) Nicotine dependence Qualifiers: Nicotine product type: cigarettes Substance use status: uncomplicated Qualified Code(s): F17.210 - Nicotine dependence, cigarettes, uncomplicated Current Visit: Yes Status: Chronic (3) Sedative hypnotic or anxiolytic dependence Current Visit: Yes Status: Chronic Plan: D/C TODAY FOLLOW UP WITH CD AFTERCARE RECOMMENDATION FOLLOW UP WITH PCP 1-2 WEEKS AFTER DISCHARGE FOR MEDICAL MANAGEMENT.
== END 2018-12-10 10:20 | disposition home or self-care (01) | DRG 895 ==
LOC: YASAS 11:16 → Y6N 16:36 → UNDODISIN 11-18 14:05 → Y5N 11-18 14:20
PROVIDERS: ADMIT Surgery; ATTEND Neuromusculoskeletal Medicine & OMM
PROC: HZ2ZZZZ Detoxification Services for Substance Abuse Treatment (ICD-10-PCS; 2018-11-13)
PROC: HZ42ZZZ Group Counseling for Substance Abuse Treatment, Cognitive-Behavioral (ICD-10-PCS; principal; 2018-11-18)
DX: F10.20 Alcohol dependence, uncomplicated (principal); F13.20 Sedative, hypnotic or anxiolytic dependence, uncomplicated; F14.20 Cocaine dependence, uncomplicated; F33.2 Major depressive disorder, recurrent severe without psychotic features; F12.20 Cannabis dependence, uncomplicated; F17.210 Nicotine dependence, cigarettes, uncomplicated; F41.9 Anxiety disorder, unspecified; F19.24 Other psychoactive substance dependence with psychoactive substance-induced mood disorder; F43.10 Post-traumatic stress disorder, unspecified
CPT/HCPCS: 36415; 80053; 85027; 86593; 93005; 93010